=== PATIENT | female | born 1940 | race Caucasian/White ===

== ENCOUNTER 2017-02-03 14:19 | Inpatient (IN) | payer MEDICARE, MEDICAID ==
[2017-02-03] VITALS (17 sets, daily range): BP systolic 81–115; BP diastolic 37–87
[~2017-02-03] VITALS: Ht 162.6 cm; Wt 91.5 kg
[~2017-02-03 14:19] MED LIST: ADV50100 IH; AMLO1TAB46 PO; ASPI-1265 PO; FLUTICASONE; HCTZ25T PO; NITR0.4T51 SL; NORepinephrine bitartrate 8 MG in NS 250 ML BAG (32 mcg/ml) IV ONE; PRAV80TA3 PO; etomidate 2mg/ml inj. ONE
[2017-02-03] MEDS ORDERED: normal saline 1000ML IV soln IVB ONE (14:50)
[2017-02-03] MEDS ORDERED: furosemide 10 MG/1 ML 10ml inj IV ONE (15:25)
[2017-02-03] MEDS ORDERED: diltiazem 5mg/ml 5ml inj. IV ONE (15:30)
[2017-02-03 15:39] LABS: BASOPHILS # (AUTO) 0.1 X10'3 (0-0.2); BASOPHILS % (AUTO) 0.4 % (0-1); EOSINOPHILS % (AUTO) 0.1 % (0-6); HEMATOCRIT 38.1 % (35.0-45.0); HEMOGLOBIN 12.7 g/dl (12.0-16.0); LYMPHOCYTES # (AUTO) 0.4 X10'3 (1.1-4.8); LYMPHOCYTES % (AUTO) 2.6 % (21-51); MEAN CORPUSCULAR HEMOGLOBIN 28.6 PG (27.0-31.0); MEAN CORPUSCULAR HGB CONC 33.2 % (33.0-36.5); MEAN CORPUSCULAR VOLUME 86.1 FL (78-98); MEAN PLATELET VOLUME 8.6 FL (7.4-10.4); MONOCYTES # (AUTO) 0.4 X10'3 (0-0.9); NEUTROPHILS # (AUTO) 12.9 X10'3 (1.8-7.7); NEUTROPHILS % (AUTO) 93.9 % (42-75); PLATELET COUNT 213 X10'3 (140-440); RED BLOOD COUNT 4.42 X10'6 (4.20-5.60); RED CELL DISTRIBUTION WIDTH 15.1 % (11.5-14.5); WHITE BLOOD COUNT 13.7 X10'3 (4.5-11.0)
[2017-02-03 15:52] LABS: PARTIAL THROMBOPLASTIN TIME 32 SECONDS (22-32); PROTHROMBIN TIME 10.1 SECONDS (9.0-12.0)
[2017-02-03 15:58] LABS: ALANINE AMINOTRANSFERASE 19 U/L (12-78); ALBUMIN 1.8 G/DL (3.4-5.0); ALBUMIN/GLOBULIN RATIO 0.4 (1.1-1.5); ALKALINE PHOSPHATASE 57 IU/L (46-116); ANION GAP 12 (8-16); ASPARTATE AMINO TRANSFERASE 48 U/L (10-37); BILIRUBIN,TOTAL 1.3 MG/DL (0.1-1.0); BLOOD UREA NITROGEN 87 MG/DL (7-18); BUN/CREATININE RATIO 45.8 (6.6-38.0); CALCIUM 8.4 MG/DL (8.5-10.1); CHLORIDE 102 MMOL/L (99-107); GLUCOSE 134 MG/DL (70-104); POTASSIUM 3.2 MMOL/L (3.5-5.1); SODIUM 140 MMOL/L (135-145); TOTAL CARBON DIOXIDE 25.8 MMOL/L (24-32); TOTAL PROTEIN 6.6 G/DL (6.4-8.2); eGFR 26 ML/MIN
[2017-02-03 16:04] LABS: MAGNESIUM 2.5 MG/DL (1.5-2.4)
[2017-02-03 16:09] LABS: PLATELET ESTIMATE NORMAL; TOTAL CELLS COUNTED 100
[2017-02-03 16:10] LABS: TOXIC GRANULATION 2+
[2017-02-03 16:12] LABS: CLARITY,URINE Cloudy (Clear); COLOR,URINE Dark Yellow (Yellow); GLUCOSE, URINE Negative (Neg); KETONES,URINE Negative (Neg); LEUKOCYTE ESTERASE ,URINE Moderate (Neg); NITRITES, URINE Positive (Neg); OCCULT BLOOD,URINE Moderate (Neg); PROTEIN,URINE 100 mg/dl (Neg)
[2017-02-03 16:19] LABS: UA COLLECTION TYPE STRAIGHT CATH
[2017-02-03] MEDS ORDERED: ipratropium/albuterol 3ml nebule NEB ONE (16:20)
[2017-02-03] MEDS ORDERED: CefTRIAXone 1 gm/50ml D5W ADV 50 ML IV ONE (16:25)
[2017-02-03] MEDS ORDERED: levoFLOXACIN-Levaquin 500mg/D5 100 ML IV ONE (16:25)
[2017-02-03 16:30] LABS: MUCUS STRANDS MODERATE /LPF (Neg); SQUAMOUS EPITHELIAL CELL,UR MANY /LPF (FEW)
[2017-02-03 16:35] LABS: BACTERIA,URINE 4+ /HPF (Neg); WBC,URINE 20-30 /HPF (0-4)
[2017-02-03] MEDS: potassium Cl 20mEq in NS 1,000 ML IV SCH (16:42)
[2017-02-03] MEDS ORDERED: magnesium 4gm in 100ml NS 100 ML IV PRN (16:45)
[2017-02-03] MEDS ORDERED: acetaminophen 325mg tablet PO PRN (16:45)
[2017-02-03] MEDS ORDERED: potassium Cl 40MEQ/NS 500ml 500 ML IV PRN ×2 (16:45)
[2017-02-03] MEDS ORDERED: magnesium Cl slow-release 64mg tablet PO PRN (16:45)
[2017-02-03] MEDS ORDERED: magnesium 2GM in 50ml NS 50 ML IV PRN (16:45)
[2017-02-03] MEDS ORDERED: mag hydrox/Alum hydrox/simeth 30ml oral suspension PO PRN (16:45)
[2017-02-03] MEDS ORDERED: morphine sulfate 8 MG/ML SYRINGE IV PRN ×2 (16:45)
[2017-02-03] MEDS ORDERED: potassium Cl 20 mEq SR tablet PO PRN (16:45)
[2017-02-03 16:56] LABS: ABG BASE EXCESS -5.2 mmol/L (-2.0-3.0); ABG OXYGEN SATURATION 86.2 % (95-98); ABG PCO2 (T) 43.3 mmHg (32.0-45.0); ABG PH (T) 7.303 (7.350-7.450); ABG PO2 (T) 60.1 mmHg (83-108); ALLEN'S TEST Positive; FCOHb 0.9 % (0.5-1.5); FLOW 5 L/min; FMetHb 0.3 % (0.3-1.12); FO2Hb 85.2 % (94-100); TOTAL HEMOGLOBIN 12.6 G/dl (12.0-16.0)
[2017-02-03] MEDS ORDERED: oseltamivir phos 75mg capsule PO SCH (17:00)
[2017-02-03] MEDS ORDERED: levoFLOXACIN-Levaquin 750MG/D5 150 ML IV SCH (17:00)
[2017-02-03] MEDS ORDERED: nitroGLYCERIN 0.4mg SUBLingual tab SL PRN (17:00)
[2017-02-03] MEDS ORDERED: oseltamivir 30mg capsule PO SCH (17:17)
[2017-02-03] MEDS ORDERED: pneumococcal 23-VAL P-sac vacc 25 mcg/0.5ml vial IMVAC ONE (17:40)
[2017-02-03] MEDS: piperacillin/tazo 3.375gm/50ml 50 ML IV SCH (18:00)
[2017-02-03] MEDS: potassium Cl 20 mEq SR tablet PO SCH (18:18)
[2017-02-03] MEDS: diltiazem-D5W 125mg/125ml 125 ML IV PRN ×2 (18:54→22:07)
[2017-02-03] MEDS: ipratropium/albuterol 3ml nebule NEB SCH ×2 (19:12→23:02)
[2017-02-03] MEDS: heparin, porcine 5000 units/ml vial SQ SCH (20:00)
[2017-02-03] MEDS: nystatin 15 GM powder TP SCH (21:00)
[2017-02-03] MEDS ORDERED: normal saline 500ml IV soln 1,000 ML IV ONE (21:45)
[2017-02-03 22:05] LABS: BASOPHILS % (AUTO) 0 % (0-1); EOSINOPHILS % (AUTO) 0 % (0-6); HEMATOCRIT 41.8 % (35.0-45.0); HEMOGLOBIN 13.6 g/dl (12.0-16.0); LYMPHOCYTES # (AUTO) 0.4 X10'3 (1.1-4.8); LYMPHOCYTES % (AUTO) 3.8 % (21-51); MEAN CORPUSCULAR HGB CONC 32.6 % (33.0-36.5); MEAN PLATELET VOLUME 8.8 FL (7.4-10.4); MONOCYTES # (AUTO) 0.1 X10'3 (0-0.9); MONOCYTES % (AUTO) 0.8 % (2-12); NEUTROPHILS % (AUTO) 95.4 % (42-75); PLATELET COUNT 212 X10'3 (140-440); RED BLOOD COUNT 4.86 X10'6 (4.20-5.60); WHITE BLOOD COUNT 10.5 X10'3 (4.5-11.0)
[2017-02-03] MEDS: pantoprazole 40mg Tablet.DR PO SCH (23:05)
[2017-02-03] MEDS ORDERED: normal saline 1000ml 1,000 ML IV SCH (23:20)
[2017-02-04] VITALS (26 sets, daily range): BP systolic 83–147; BP diastolic 45–78
[2017-02-04] MEDS: piperacillin/tazo 3.375gm/50ml 50 ML IV SCH ×3 (00:01→07:50)
[2017-02-04] MEDS: potassium Cl 20mEq in NS 1,000 ML IV SCH (00:10)
[2017-02-04 00:11] LABS: ABG BASE EXCESS -1.7 mmol/L (-2.0-3.0); ABG HCO3 21.2 mmol/L (22.0-26.0); ABG OXYGEN SATURATION 89.7 % (95-98); ABG PCO2 (T) 32.2 mmHg (32.0-45.0); ABG PH (T) 7.441 (7.350-7.450); ABG PO2 (T) 62.4 mmHg (83-108); ALLEN'S TEST Positive; FCOHb 0.1 % (0.5-1.5); FMetHb 0.3 % (0.3-1.12); FO2Hb 89.3 % (94-100); PATIENT TEMPERATURE 38.2; RESPIRATORY RATE (OBSERVED) 26 b/min; TOTAL HEMOGLOBIN 12.1 G/dl (12.0-16.0)
[2017-02-04] MEDS ORDERED: albumin (Human) 5% 250 ML IV solution IV STA (01:48)
[2017-02-04] MEDS ORDERED: ondansetron/PF 4mg/2ml inj IV PRN (01:50)
[2017-02-04] MEDS ORDERED: magnesium 2GM in 50ml NS 50 ML IV PRN (01:50)
[2017-02-04] MEDS ORDERED: amiodarone 50MG/ML inj IV ONE ×2 (01:50)
[2017-02-04] MEDS ORDERED: potassium Cl 40MEQ/NS 500ml 500 ML IV PRN (01:50)
[2017-02-04] MEDS ORDERED: acetaminophen 325mg tablet PO PRN (01:50)
[2017-02-04] MEDS: amiodarone/D5 360MG/200ML BAG 200 ML IV SCH ×4 (02:52→20:22)
[2017-02-04] MEDS: ipratropium/albuterol 3ml nebule NEB SCH ×6 (04:27→23:53)
[2017-02-04 06:01] LABS: BASOPHILS % (AUTO) 0 % (0-1); EOSINOPHILS % (AUTO) 0 % (0-6); HEMATOCRIT 32.7 % (35.0-45.0); HEMOGLOBIN 10.9 g/dl (12.0-16.0); LYMPHOCYTES # (AUTO) 0.4 X10'3 (1.1-4.8); LYMPHOCYTES % (AUTO) 2.7 % (21-51); MEAN CORPUSCULAR HEMOGLOBIN 28.6 PG (27.0-31.0); MEAN CORPUSCULAR HGB CONC 33.5 % (33.0-36.5); MEAN CORPUSCULAR VOLUME 85.4 FL (78-98); MEAN PLATELET VOLUME 8.9 FL (7.4-10.4); MONOCYTES # (AUTO) 0.4 X10'3 (0-0.9); MONOCYTES % (AUTO) 2.7 % (2-12); NEUTROPHILS # (AUTO) 13.6 X10'3 (1.8-7.7); NEUTROPHILS % (AUTO) 94.6 % (42-75); PLATELET COUNT 187 X10'3 (140-440); RED BLOOD COUNT 3.83 X10'6 (4.20-5.60); WHITE BLOOD COUNT 14.3 X10'3 (4.5-11.0)
[2017-02-04 06:24] LABS: ALANINE AMINOTRANSFERASE 12 U/L (12-78); ALBUMIN 1.7 G/DL (3.4-5.0); ALBUMIN/GLOBULIN RATIO 0.4 (1.1-1.5); ALKALINE PHOSPHATASE 48 IU/L (46-116); ANION GAP 13 (8-16); ASPARTATE AMINO TRANSFERASE 29 U/L (10-37); BILIRUBIN,TOTAL 1.3 MG/DL (0.1-1.0); BLOOD UREA NITROGEN 71 MG/DL (7-18); BUN/CREATININE RATIO 42.8 (6.6-38.0); CALCIUM 7.8 MG/DL (8.5-10.1); CHLORIDE 105 MMOL/L (99-107); CREATININE 1.66 MG/DL (0.40-0.90); GLUCOSE 139 MG/DL (70-104); MAGNESIUM 2.1 MG/DL (1.5-2.4); SODIUM 142 MMOL/L (135-145); TOTAL CARBON DIOXIDE 23.6 MMOL/L (24-32); TOTAL PROTEIN 5.7 G/DL (6.4-8.2); eGFR 30 ML/MIN
[2017-02-04 06:43] LABS: POTASSIUM 2.6 MMOL/L (3.5-5.1)
[2017-02-04 06:56] LABS: BANDS% (MANUAL) 9 % (0-10); LYMPHOCYTES % (MANUAL) 3 % (21-51); METAMYLEOCYTES% (MANUAL) 1 % (0-0); MONOCYTES % (MANUAL) 3 % (2-12); MYELOCYTES % (MANUAL) 1 % (0-0); NEUTROPHILS % (MANUAL) 83 % (42-75); TOTAL CELLS COUNTED 100
[2017-02-04 06:57] LABS: PLATELET ESTIMATE NORMAL; TOXIC GRANULATION 1+
[2017-02-04 07:16] LABS: CHOLESTEROL < 50 MG/DL (0-200); HDL CHOLESTEROL 11 MG/DL (35-60); LDL CHOLESTEROL 26 MG/DL (50-100); TRIGLYCERIDES 73 MG/DL (20-135)
[2017-02-04] MEDS: lactobacillus rhamnosus 10,000 MMU CELLS/CAPSULE PO SCH ×2 (07:43→17:04)
[2017-02-04] MEDS: pantoprazole 40mg Tablet.DR PO SCH (07:43)
[2017-02-04] MEDS: aspirin 81mg tab.chew PO SCH (07:44)
[2017-02-04] MEDS: nystatin 15 GM powder TP SCH ×3 (07:48→20:17)
[2017-02-04] MEDS: potassium Cl 20 mEq SR tablet PO SCH ×2 (07:48→17:04)
[2017-02-04] MEDS: heparin, porcine 5000 units/ml vial SQ SCH ×2 (07:48→20:15)
[2017-02-04] MEDS: potassium Cl 20 mEq SR tablet PO PRN ×3 (07:49→15:55)
[2017-02-04] MEDS ORDERED: CefTRIAXone 1 gm/50ml D5W ADV 50 ML IV SCH (08:00)
[2017-02-04] MEDS: K and/or MAG REPLACEMENT MC SCH (08:00)
[2017-02-04] MEDS ORDERED: pravastatin 40mg tablet PO SCH (08:00)
[2017-02-04] MEDS ORDERED: furosemide 20 MG/2 ML vial IV SCH (08:00)
[2017-02-04] MEDS: levoFLOXACIN-Levaquin 750MG/D5 150 ML IV SCH (12:34)
[2017-02-04] MEDS: vancomycin/NS 1 GM ADD-VANTAGE 250 ML IV SCH ×2 (13:50→15:30)
[2017-02-04] MEDS: pravastatin 40mg tablet PO SCH (20:16)
[2017-02-04] MEDS: potassium Cl 40MEQ/250ML bag 250 ML IV PRN ×2 (20:17→22:42)
[2017-02-05] VITALS (24 sets, daily range): BP systolic 110–174; BP diastolic 50–80
[2017-02-05] MEDS: amiodarone/D5 360MG/200ML BAG 200 ML IV SCH ×4 (02:26→19:41)
[2017-02-05] MEDS: ipratropium/albuterol 3ml nebule NEB SCH ×6 (03:55→23:04)
[2017-02-05 04:21] LABS: BASOPHILS % (AUTO) 0 % (0-1); EOSINOPHILS # (AUTO) 0.2 X10'3 (0-0.9); EOSINOPHILS % (AUTO) 0.8 % (0-6); HEMATOCRIT 33.7 % (35.0-45.0); HEMOGLOBIN 11.1 g/dl (12.0-16.0); LYMPHOCYTES # (AUTO) 0.4 X10'3 (1.1-4.8); LYMPHOCYTES % (AUTO) 2.2 % (21-51); MEAN CORPUSCULAR HEMOGLOBIN 28.4 PG (27.0-31.0); MEAN CORPUSCULAR HGB CONC 33.1 % (33.0-36.5); MEAN CORPUSCULAR VOLUME 85.8 FL (78-98); MEAN PLATELET VOLUME 8.8 FL (7.4-10.4); MONOCYTES # (AUTO) 0.1 X10'3 (0-0.9); MONOCYTES % (AUTO) 0.5 % (2-12); NEUTROPHILS # (AUTO) 19.3 X10'3 (1.8-7.7); NEUTROPHILS % (AUTO) 96.5 % (42-75); PLATELET COUNT 203 X10'3 (140-440); RED BLOOD COUNT 3.92 X10'6 (4.20-5.60); RED CELL DISTRIBUTION WIDTH 15.4 % (11.5-14.5)
[2017-02-05 04:35] LABS: ALANINE AMINOTRANSFERASE 15 U/L (12-78); ALBUMIN 1.4 G/DL (3.4-5.0); ALBUMIN/GLOBULIN RATIO 0.3 (1.1-1.5); ALKALINE PHOSPHATASE 50 IU/L (46-116); ANION GAP 6 (8-16); ASPARTATE AMINO TRANSFERASE 33 U/L (10-37); BILIRUBIN,TOTAL 0.8 MG/DL (0.1-1.0); BLOOD UREA NITROGEN 49 MG/DL (7-18); BUN/CREATININE RATIO 39.2 (6.6-38.0); CALCIUM 7.9 MG/DL (8.5-10.1); CHLORIDE 112 MMOL/L (99-107); CREATININE 1.25 MG/DL (0.40-0.90); GLUCOSE 125 MG/DL (70-104); MAGNESIUM 2.3 MG/DL (1.5-2.4); POTASSIUM 4.3 MMOL/L (3.5-5.1); SODIUM 143 MMOL/L (135-145); TOTAL CARBON DIOXIDE 24.8 MMOL/L (24-32); TOTAL PROTEIN 5.5 G/DL (6.4-8.2); eGFR 41 ML/MIN
[2017-02-05 04:49] LABS: TOTAL CELLS COUNTED 100
[2017-02-05 04:50] LABS: PLATELET ESTIMATE NORMAL; TOXIC GRANULATION 1+
[2017-02-05] MEDS ORDERED: amiodarone 150mg/dext, iso-os 100 ML IV ONE ×2 (05:40→05:46)
[2017-02-05] MEDS: K and/or MAG REPLACEMENT MC SCH (08:00)
[2017-02-05] MEDS: lactobacillus rhamnosus 10,000 MMU CELLS/CAPSULE PO SCH ×2 (09:11→16:30)
[2017-02-05] MEDS: aspirin 81mg tab.chew PO SCH (09:11)
[2017-02-05] MEDS: potassium Cl 20 mEq SR tablet PO SCH ×2 (09:11→16:30)
[2017-02-05] MEDS: heparin, porcine 5000 units/ml vial SQ SCH (09:11)
[2017-02-05] MEDS: nystatin 15 GM powder TP SCH ×3 (09:12→22:03)
[2017-02-05] MEDS: pantoprazole 40mg Tablet.DR PO SCH (09:12)
[2017-02-05] MEDS ORDERED: furosemide 20 MG/2 ML vial IV ONE (11:55)
[2017-02-05] MEDS: labetalol 100mg tablet PO SCH (12:27)
[2017-02-05] MEDS ORDERED: furosemide 40mg/4ml inj IV SCH (13:00)
[2017-02-05] MEDS: furosemide 40mg tablet PO SCH ×2 (13:05→22:00)
[2017-02-05] MEDS: vancomycin inj 1,250 MG in normal saline 250ml IV soln 250 ML IV SCH (13:47)
[2017-02-05] MEDS ORDERED: Neutra Phos packet PO PRN (17:20)
[2017-02-05] MEDS ORDERED: sodium phosphate inj. 15 MMOL in dextrose 5%-water 150 ML IV PRN (17:20)
[2017-02-05] MEDS ORDERED: sodium phosphate inj. 30 MMOL in dextrose 5%-water 250 ML IV PRN (17:20)
[2017-02-05 20:06] LABS: ABG BASE EXCESS -0.9 mmol/L (-2.0-3.0); ABG HCO3 22.6 mmol/L (22.0-26.0); ABG OXYGEN SATURATION 85.9 % (95-98); ABG PH (T) 7.451 (7.350-7.450); ABG PO2 (T) 54.9 mmHg (83-108); FCOHb 0.4 % (0.5-1.5); FLOW 15 L/min; FMetHb 0.3 % (0.3-1.12); FO2Hb 85.3 % (94-100); PATIENT TEMPERATURE 36.6; TOTAL HEMOGLOBIN 12.2 G/dl (12.0-16.0)
[2017-02-05] MEDS: enoxaparin 30mg/0.3ml syringe SUBCUT SCH (21:59)
[2017-02-05] MEDS: enoxaparin 60mg/0.6ml syringe SUBCUT SCH (22:00)
[2017-02-05] MEDS: pravastatin 40mg tablet PO SCH (22:04)
[2017-02-06] VITALS (24 sets, daily range): BP systolic 102–171; BP diastolic 36–71
[2017-02-06] MEDS: ipratropium/albuterol 3ml nebule NEB SCH ×6 (02:39→23:37)
[2017-02-06 02:52] LABS: BASOPHILS # (AUTO) 0.2 X10'3 (0-0.2); BASOPHILS % (AUTO) 0.9 % (0-1); EOSINOPHILS % (AUTO) 0.2 % (0-6); HEMATOCRIT 35.1 % (35.0-45.0); HEMOGLOBIN 11.8 g/dl (12.0-16.0); LYMPHOCYTES # (AUTO) 0.6 X10'3 (1.1-4.8); LYMPHOCYTES % (AUTO) 2.7 % (21-51); MEAN CORPUSCULAR HEMOGLOBIN 28.3 PG (27.0-31.0); MEAN CORPUSCULAR HGB CONC 33.5 % (33.0-36.5); MEAN CORPUSCULAR VOLUME 84.5 FL (78-98); MEAN PLATELET VOLUME 8.5 FL (7.4-10.4); MONOCYTES # (AUTO) 0.5 X10'3 (0-0.9); MONOCYTES % (AUTO) 2.1 % (2-12); NEUTROPHILS # (AUTO) 22.7 X10'3 (1.8-7.7); NEUTROPHILS % (AUTO) 94.1 % (42-75); PLATELET COUNT 232 X10'3 (140-440); RED BLOOD COUNT 4.16 X10'6 (4.20-5.60); RED CELL DISTRIBUTION WIDTH 14.5 % (11.5-14.5)
[2017-02-06 03:14] LABS: ALANINE AMINOTRANSFERASE 15 U/L (12-78); ALBUMIN 1.4 G/DL (3.4-5.0); ALBUMIN/GLOBULIN RATIO 0.3 (1.1-1.5); ALKALINE PHOSPHATASE 60 IU/L (46-116); ANION GAP 9 (8-16); ASPARTATE AMINO TRANSFERASE 29 U/L (10-37); BILIRUBIN,TOTAL 0.8 MG/DL (0.1-1.0); BLOOD UREA NITROGEN 39 MG/DL (7-18); BUN/CREATININE RATIO 33.6 (6.6-38.0); CALCIUM 8.1 MG/DL (8.5-10.1); CHLORIDE 109 MMOL/L (99-107); CREATININE 1.16 MG/DL (0.40-0.90); GLUCOSE 137 MG/DL (70-104); PHOSPHORUS 3.3 MG/DL (2.3-4.5); POTASSIUM 3.4 MMOL/L (3.5-5.1); SODIUM 145 MMOL/L (135-145); TOTAL CARBON DIOXIDE 27.2 MMOL/L (24-32); TOTAL PROTEIN 5.6 G/DL (6.4-8.2); eGFR 45 ML/MIN
[2017-02-06 03:21] LABS: TOTAL CELLS COUNTED 100
[2017-02-06 03:22] LABS: ANISOCYTOSIS 1+; PLATELET ESTIMATE NORMAL; POLYCHROMASIA 1+; TOXIC GRANULATION 1+; TOXIC VACUOLATION 1+
[2017-02-06] MEDS: K and/or MAG REPLACEMENT MC SCH (08:00)
[2017-02-06] MEDS: labetalol 100mg tablet PO SCH ×4 (08:00→21:00)
[2017-02-06] MEDS: enoxaparin 30mg/0.3ml syringe SUBCUT SCH ×2 (08:22→20:00)
[2017-02-06] MEDS: enoxaparin 60mg/0.6ml syringe SUBCUT SCH ×2 (08:22→20:00)
[2017-02-06] MEDS: pantoprazole 40mg Tablet.DR PO SCH (08:23)
[2017-02-06] MEDS: amiodarone 200mg tablet PO SCH ×3 (08:23→21:00)
[2017-02-06] MEDS: potassium Cl 20 mEq SR tablet PO SCH ×2 (08:23→13:11)
[2017-02-06] MEDS: aspirin 81mg tab.chew PO SCH (08:23)
[2017-02-06] MEDS: furosemide 40mg tablet PO SCH ×3 (08:23→21:00)
[2017-02-06] MEDS: lactobacillus rhamnosus 10,000 MMU CELLS/CAPSULE PO SCH ×2 (08:23→16:00)
[2017-02-06] MEDS: nystatin 15 GM powder TP SCH ×3 (08:24→21:00)
[2017-02-06] MEDS: levoFLOXACIN-Levaquin 750MG/D5 150 ML IV SCH (08:24)
[2017-02-06] MEDS: NUT.TX.GLUC.INTOLER,LAC-FR,REG (BOOST GLUCOSE CONTROL) 237 ML PO SCH ×2 (13:00→18:00)
[2017-02-06] MEDS ORDERED: furosemide 40 MG/4 ML oral solution UD cup PO SCH (13:00)
[2017-02-06] MEDS ORDERED: furosemide 10 MG/1 ML 10ml inj IV ONE (13:00)
[2017-02-06] MEDS: Protein Smoothie (high protein) 240ml (8oz) cup PO SCH ×2 (13:00→18:00)
[2017-02-06] MEDS: spironolactone 50 MG tablet PO SCH ×2 (13:00→21:00)
[2017-02-06] MEDS: vancomycin inj 1,250 MG in normal saline 250ml IV soln 250 ML IV SCH (13:12)
[2017-02-06] MEDS: pravastatin 40mg tablet PO SCH (21:00)
[2017-02-06] MEDS: acetaminophen 325mg tablet PO PRN (22:26)
[2017-02-06] MEDS ORDERED: potassium Cl 40MEQ/250ML bag 250 ML IV PRN (22:45)
[2017-02-06] MEDS ORDERED: potassium Cl 20 mEq SR tablet PO PRN ×2 (22:45)
[2017-02-06] MEDS ORDERED: potassium Cl 40MEQ/250ML bag 500 ML IV ONE (23:35)
[2017-02-07] VITALS (24 sets, daily range): BP systolic 106–140; BP diastolic 40–74
[2017-02-07] MEDS: potassium Cl 40MEQ/250ML bag 250 ML IV PRN ×2 (02:18→21:24)
[2017-02-07] MEDS: ipratropium/albuterol 3ml nebule NEB SCH ×6 (02:56→22:49)
[2017-02-07 04:49] LABS: BASOPHILS % (AUTO) 0.1 % (0-1); EOSINOPHILS # (AUTO) 0.1 X10'3 (0-0.9); EOSINOPHILS % (AUTO) 0.2 % (0-6); HEMATOCRIT 35.1 % (35.0-45.0); HEMOGLOBIN 11.6 g/dl (12.0-16.0); LYMPHOCYTES # (AUTO) 0.7 X10'3 (1.1-4.8); LYMPHOCYTES % (AUTO) 3.2 % (21-51); MEAN CORPUSCULAR HEMOGLOBIN 28.3 PG (27.0-31.0); MEAN CORPUSCULAR HGB CONC 33.2 % (33.0-36.5); MEAN CORPUSCULAR VOLUME 85.4 FL (78-98); MEAN PLATELET VOLUME 8.7 FL (7.4-10.4); MONOCYTES # (AUTO) 0.8 X10'3 (0-0.9); MONOCYTES % (AUTO) 3.6 % (2-12); NEUTROPHILS # (AUTO) 21.6 X10'3 (1.8-7.7); NEUTROPHILS % (AUTO) 92.9 % (42-75); PLATELET COUNT 238 X10'3 (140-440); RED BLOOD COUNT 4.11 X10'6 (4.20-5.60); RED CELL DISTRIBUTION WIDTH 15.6 % (11.5-14.5); WHITE BLOOD COUNT 23.2 X10'3 (4.5-11.0)
[2017-02-07 05:35] LABS: ALANINE AMINOTRANSFERASE 14 U/L (12-78); ALBUMIN 1.3 G/DL (3.4-5.0); ALBUMIN/GLOBULIN RATIO 0.3 (1.1-1.5); ALKALINE PHOSPHATASE 59 IU/L (46-116); ANION GAP 7 (8-16); ASPARTATE AMINO TRANSFERASE 24 U/L (10-37); BLOOD UREA NITROGEN 33 MG/DL (7-18); BUN/CREATININE RATIO 25.8 (6.6-38.0); CHLORIDE 108 MMOL/L (99-107); CREATININE 1.28 MG/DL (0.40-0.90); GLUCOSE 115 MG/DL (70-104); MAGNESIUM 1.6 MG/DL (1.5-2.4); POTASSIUM 3.4 MMOL/L (3.5-5.1); SODIUM 146 MMOL/L (135-145); TOTAL PROTEIN 5.4 G/DL (6.4-8.2); eGFR 40 ML/MIN
[2017-02-07 05:39] LABS: ANISOCYTOSIS 1+; PLATELET ESTIMATE NORMAL; TOTAL CELLS COUNTED 100; TOXIC GRANULATION 1+
[2017-02-07] MEDS: Protein Smoothie (high protein) 240ml (8oz) cup PO SCH ×3 (08:00→19:46)
[2017-02-07] MEDS: K and/or MAG REPLACEMENT MC SCH (08:00)
[2017-02-07] MEDS: NUT.TX.GLUC.INTOLER,LAC-FR,REG (BOOST GLUCOSE CONTROL) 237 ML PO SCH ×3 (08:00→18:00)
[2017-02-07] MEDS: lactobacillus rhamnosus 10,000 MMU CELLS/CAPSULE PO SCH ×2 (08:15→17:30)
[2017-02-07] MEDS: labetalol 100mg tablet PO SCH ×3 (08:15→21:00)
[2017-02-07] MEDS: aspirin 81mg tab.chew PO SCH (08:15)
[2017-02-07] MEDS: pantoprazole 40mg Tablet.DR PO SCH (08:15)
[2017-02-07] MEDS: furosemide 40mg tablet PO SCH ×3 (08:15→21:15)
[2017-02-07] MEDS: spironolactone 50 MG tablet PO SCH ×3 (08:15→21:15)
[2017-02-07] MEDS: amiodarone 200mg tablet PO SCH ×3 (08:15→21:15)
[2017-02-07] MEDS: enoxaparin 60mg/0.6ml syringe SUBCUT SCH ×2 (08:16→21:22)
[2017-02-07] MEDS: enoxaparin 30mg/0.3ml syringe SUBCUT SCH ×2 (08:16→21:22)
[2017-02-07] MEDS: nystatin 15 GM powder TP SCH ×3 (08:17→21:00)
[2017-02-07] MEDS: levoFLOXACIN-Levaquin 750MG/D5 150 ML IV SCH (08:17)
[2017-02-07] MEDS: potassium Cl 20 mEq SR tablet PO SCH ×2 (08:17→17:30)
[2017-02-07] MEDS ORDERED: pneumococcal 23-VAL P-sac vacc 25 mcg/0.5ml vial IMVAC ONE (09:00)
[2017-02-07] MEDS ORDERED: FENTANYL-0.9 % NACL/PF 100 ML IV PRN (11:39)
[2017-02-07] MEDS ORDERED: midazolam 100mg in NS 100ml 100 ML IV PRN (11:39)
[2017-02-07] MEDS ORDERED: fentaNYL in normal saline/PF 1,000mcg/100ml bag IV PRN (11:40)
[2017-02-07] MEDS ORDERED: MIDAZOLAM IV PRN (11:40)
[2017-02-07] MEDS ORDERED: midazolam 2 mg/2 ml injection IV PRN (11:40)
[2017-02-07] MEDS ORDERED: midazolam 2 mg/2 ml injection IV ONE (11:40)
[2017-02-07] MEDS ORDERED: NS IV PRN (11:40)
[2017-02-07] MEDS ORDERED: fentaNYL/PF 50MCG/1 ML 2ML syringe IV PRN ×3 (11:40)
[2017-02-07] MEDS ORDERED: MIDAZolam 5mg/ml 2ml vial ONE (11:45)
[2017-02-07] MEDS ORDERED: fentaNYL/PF 50MCG/1 ML 2ML syringe ONE (11:46)
[2017-02-07] MEDS: vancomycin inj 1,250 MG in normal saline 250ml IV soln 250 ML IV SCH (13:00)
[2017-02-07] MEDS: midazolam 100mg in NS 100ml 100 ML IV PRN (13:54)
[2017-02-07] MEDS: FENTANYL-0.9 % NACL/PF 100 ML IV PRN (13:55)
[2017-02-07] MEDS ORDERED: ipratropium/albuterol 3ml nebule NEB SCH (15:00)
[2017-02-07 17:16] LABS: ABG BASE EXCESS 4.7 mmol/L (-2.0-3.0); ABG HCO3 28.6 mmol/L (22.0-26.0); ABG OXYGEN SATURATION 90.5 % (95-98); ABG PCO2 (T) 39.6 mmHg (32.0-45.0); ABG PH (T) 7.476 (7.350-7.450); ABG PO2 (T) 57.6 mmHg (83-108); FCOHb 0.4 % (0.5-1.5); FMetHb 0.3 % (0.3-1.12); FO2Hb 89.9 % (94-100); MINUTE VOLUME 11 L/min; PEEP 8 cm H2O; RESPIRATORY RATE 12 b/min; TIDAL VOLUME 450 mL; TOTAL HEMOGLOBIN 11.8 G/dl (12.0-16.0)
[2017-02-07] MEDS: pravastatin 40mg tablet PO SCH (21:14)
[2017-02-07] MEDS: NORepinephrine 8mg/ 250ml NS 250 ML IV SCH (23:12)
[2017-02-08] VITALS (22 sets, daily range): BP systolic 92–129; BP diastolic 40–68
[2017-02-08] MEDS: potassium Cl 40MEQ/250ML bag 250 ML IV PRN ×2 (00:10→13:08)
[2017-02-08 02:36] LABS: ABG BASE EXCESS 5.7 mmol/L (-2.0-3.0); ABG HCO3 29.3 mmol/L (22.0-26.0); ABG PCO2 (T) 40.6 mmHg (32.0-45.0); ABG PO2 (T) 80.8 mmHg (83-108); FCOHb 0.1 % (0.5-1.5); FMetHb 0.3 % (0.3-1.12); FO2Hb 94.6 % (94-100); PEEP 8 cm H2O; RESPIRATORY RATE 12 b/min; RESPIRATORY RATE (OBSERVED) 19 b/min; TIDAL VOLUME 450 mL; TOTAL HEMOGLOBIN 11.6 G/dl (12.0-16.0)
[2017-02-08] MEDS: midazolam 100mg in NS 100ml 100 ML IV PRN ×2 (02:42→17:01)
[2017-02-08] MEDS: ipratropium/albuterol 3ml nebule NEB SCH ×6 (03:02→23:06)
[2017-02-08 03:10] LABS: BASOPHILS % (AUTO) 0 % (0-1); EOSINOPHILS # (AUTO) 0.6 X10'3 (0-0.9); EOSINOPHILS % (AUTO) 2.4 % (0-6); HEMATOCRIT 34.1 % (35.0-45.0); HEMOGLOBIN 11.2 g/dl (12.0-16.0); LYMPHOCYTES # (AUTO) 0.9 X10'3 (1.1-4.8); LYMPHOCYTES % (AUTO) 3.7 % (21-51); MEAN CORPUSCULAR HEMOGLOBIN 28.4 PG (27.0-31.0); MEAN CORPUSCULAR VOLUME 85.9 FL (78-98); MEAN PLATELET VOLUME 8.3 FL (7.4-10.4); MONOCYTES % (AUTO) 3.8 % (2-12); NEUTROPHILS # (AUTO) 22.9 X10'3 (1.8-7.7); NEUTROPHILS % (AUTO) 90.1 % (42-75); PLATELET COUNT 249 X10'3 (140-440); RED BLOOD COUNT 3.96 X10'6 (4.20-5.60); RED CELL DISTRIBUTION WIDTH 15.7 % (11.5-14.5)
[2017-02-08 03:14] LABS: WHITE BLOOD COUNT 25.4 X10'3 (4.5-11.0)
[2017-02-08 03:37] LABS: ALANINE AMINOTRANSFERASE 14 U/L (12-78); ALBUMIN 1.2 G/DL (3.4-5.0); ALBUMIN/GLOBULIN RATIO 0.3 (1.1-1.5); ALKALINE PHOSPHATASE 56 IU/L (46-116); ANION GAP 7 (8-16); ASPARTATE AMINO TRANSFERASE 20 U/L (10-37); BILIRUBIN,TOTAL 0.8 MG/DL (0.1-1.0); BLOOD UREA NITROGEN 30 MG/DL (7-18); BUN/CREATININE RATIO 21.6 (6.6-38.0); CALCIUM 7.8 MG/DL (8.5-10.1); CHLORIDE 110 MMOL/L (99-107); CREATININE 1.39 MG/DL (0.40-0.90); GLUCOSE 133 MG/DL (70-104); MAGNESIUM 1.4 MG/DL (1.5-2.4); PHOSPHORUS 2.4 MG/DL (2.3-4.5); POTASSIUM 4.1 MMOL/L (3.5-5.1); SODIUM 149 MMOL/L (135-145); TOTAL CARBON DIOXIDE 31.7 MMOL/L (24-32); TOTAL PROTEIN 5.4 G/DL (6.4-8.2); eGFR 37 ML/MIN
[2017-02-08 05:02] LABS: ANISOCYTOSIS 1+; PLATELET ESTIMATE NORMAL; TOTAL CELLS COUNTED 100; TOXIC GRANULATION 1+
[2017-02-08] MEDS: NUT.TX.GLUC.INTOLER,LAC-FR,REG (BOOST GLUCOSE CONTROL) 237 ML PO SCH ×3 (07:35→15:11)
[2017-02-08] MEDS: K and/or MAG REPLACEMENT MC SCH (07:35)
[2017-02-08] MEDS: labetalol 100mg tablet PO SCH ×3 (07:36→19:43)
[2017-02-08] MEDS: Protein Smoothie (high protein) 240ml (8oz) cup PO SCH ×3 (07:36→15:12)
[2017-02-08] MEDS: potassium Cl 20 mEq SR tablet PO SCH ×2 (07:36→15:11)
[2017-02-08] MEDS: lactobacillus rhamnosus 10,000 MMU CELLS/CAPSULE PO SCH ×2 (08:19→16:12)
[2017-02-08] MEDS: enoxaparin 60mg/0.6ml syringe SUBCUT SCH ×2 (08:20→19:50)
[2017-02-08] MEDS: enoxaparin 30mg/0.3ml syringe SUBCUT SCH ×2 (08:20→19:50)
[2017-02-08] MEDS: amiodarone 200mg tablet PO SCH ×3 (08:20→21:15)
[2017-02-08] MEDS: furosemide 40mg tablet PO SCH (08:20)
[2017-02-08] MEDS: pantoprazole 40 MG vial IV SCH (08:21)
[2017-02-08] MEDS: aspirin 81mg tab.chew PO SCH (08:21)
[2017-02-08] MEDS: nystatin 15 GM powder TP SCH ×3 (08:21→21:15)
[2017-02-08] MEDS: levoFLOXACIN-Levaquin 750MG/D5 150 ML IV SCH (08:21)
[2017-02-08] MEDS ORDERED: albumin (Human) 5% 250 ML IV solution IV STA (09:57)
[2017-02-08] MEDS ORDERED: magnesium 2GM in 50ml NS 50 ML IV PRN (10:00)
[2017-02-08] MEDS ORDERED: magnesium 4gm in 100ml NS 100 ML IV PRN (10:00)
[2017-02-08] MEDS ORDERED: albumin (human) 25% 100 ML IV solution IV ONE (10:00)
[2017-02-08] MEDS ORDERED: potassium Cl 40MEQ/250ML bag 250 ML IV PRN ×2 (10:00)
[2017-02-08] MEDS ORDERED: methylPREDNISolone sod succ 125mg/2ml vial IV SCH (10:00)
[2017-02-08] MEDS: hydrocortisone sod succ/PF 100mg/2ml inj. IV SCH ×3 (10:55→19:51)
[2017-02-08] MEDS: polyethylene glycol 3350 17gm powd pack PO SCH ×2 (10:56→21:15)
[2017-02-08 11:35] LABS: OXYGEN SATURATION (MIXED VEN) 81.2 % (60-80); PO2 MIXED VENOUS (TEMP COR) 48.9 mmHg (35-46)
[2017-02-08 12:03] LABS: VANCOMYCIN,TROUGH 17.7 UG/ML (6.0-14.0)
[2017-02-08 12:05] LABS: CREATININE,URINE RANDOM 9.9 MG/DL; TOTAL PROTEIN,URINE RANDOM 13.1 MG/DL
[2017-02-08 12:07] LABS: POTASSIUM 2.8 MMOL/L (3.5-5.1)
[2017-02-08] MEDS ORDERED: VANCOMYCIN LEVEL IV NR (12:30)
[2017-02-08] MEDS: vancomycin inj 1,250 MG in normal saline 250ml IV soln 250 ML IV SCH (13:07)
[2017-02-08] MEDS: nystatin 500,000 unit/5ML UD oral suspension PO SCH ×2 (13:07→21:15)
[2017-02-08] MEDS: mineral oil/petrolatum ophthal oint EACHEYE SCH ×2 (13:07→19:51)
[2017-02-08 13:31] LABS: ABG HCO3 29.1 mmol/L (22.0-26.0); ABG PCO2 (T) 46.3 mmHg (32.0-45.0); ABG PH (T) 7.416 (7.350-7.450); ABG PO2 (T) 81.7 mmHg (83-108); FCOHb 0.3 % (0.5-1.5); FMetHb 0.3 % (0.3-1.12); FO2Hb 94.4 % (94-100); MINUTE VOLUME 9 L/min; PATIENT TEMPERATURE 36.8; PEEP 12 cm H2O; RESPIRATORY RATE 24 b/min; TIDAL VOLUME 325 mL; TOTAL HEMOGLOBIN 9.3 G/dl (12.0-16.0)
[2017-02-08] MEDS ORDERED: mineral oil/petrolatum ophthal oint EACHEYE SCH (14:00)
[2017-02-08] MEDS: albumin (human) 25% 100 ML IV solution IV SCH ×2 (16:12→23:39)
[2017-02-08 18:00] LABS: ALBUMIN 2.8 G/DL (3.4-5.0); ANION GAP 9 (8-16); BLOOD UREA NITROGEN 33 MG/DL (7-18); CHLORIDE 111 MMOL/L (99-107); CREATININE 1.27 MG/DL (0.40-0.90); GLUCOSE 158 MG/DL (70-104); POTASSIUM 4.1 MMOL/L (3.5-5.1); SODIUM 149 MMOL/L (135-145); eGFR 41 ML/MIN
[2017-02-08] MEDS: NORepinephrine 8mg/ 250ml NS 250 ML IV SCH (19:49)
[2017-02-08] MEDS: pravastatin 40mg tablet PO SCH (21:15)
[2017-02-09] VITALS (24 sets, daily range): BP systolic 116–150; BP diastolic 42–59
[2017-02-09] MEDS: mineral oil/petrolatum ophthal oint EACHEYE SCH ×4 (02:17→21:12)
[2017-02-09] MEDS: hydrocortisone sod succ/PF 100mg/2ml inj. IV SCH ×4 (02:17→21:12)
[2017-02-09] MEDS: ipratropium/albuterol 3ml nebule NEB SCH ×6 (02:41→23:11)
[2017-02-09 02:42] LABS: BASOPHILS % (AUTO) 0 % (0-1); EOSINOPHILS # (AUTO) 0.2 X10'3 (0-0.9); EOSINOPHILS % (AUTO) 1.5 % (0-6); HEMOGLOBIN 8.4 g/dl (12.0-16.0); LYMPHOCYTES # (AUTO) 0.5 X10'3 (1.1-4.8); LYMPHOCYTES % (AUTO) 3.6 % (21-51); MEAN CORPUSCULAR HGB CONC 32.5 % (33.0-36.5); MEAN CORPUSCULAR VOLUME 86.3 FL (78-98); MEAN PLATELET VOLUME 8.2 FL (7.4-10.4); MONOCYTES # (AUTO) 0.3 X10'3 (0-0.9); MONOCYTES % (AUTO) 2.4 % (2-12); NEUTROPHILS # (AUTO) 13.1 X10'3 (1.8-7.7); NEUTROPHILS % (AUTO) 92.5 % (42-75); PLATELET COUNT 174 X10'3 (140-440); RED BLOOD COUNT 3.01 X10'6 (4.20-5.60); RED CELL DISTRIBUTION WIDTH 15.8 % (11.5-14.5); WHITE BLOOD COUNT 14.1 X10'3 (4.5-11.0)
[2017-02-09 02:54] LABS: ALANINE AMINOTRANSFERASE 12 U/L (12-78); ALBUMIN 2.9 G/DL (3.4-5.0); ALKALINE PHOSPHATASE 34 IU/L (46-116); ANION GAP 8 (8-16); ASPARTATE AMINO TRANSFERASE 12 U/L (10-37); BILIRUBIN,TOTAL 0.6 MG/DL (0.1-1.0); BLOOD UREA NITROGEN 34 MG/DL (7-18); BUN/CREATININE RATIO 26.8 (6.6-38.0); CALCIUM 8.2 MG/DL (8.5-10.1); CHLORIDE 112 MMOL/L (99-107); CREATININE 1.27 MG/DL (0.40-0.90); GLUCOSE 136 MG/DL (70-104); POTASSIUM 3.2 MMOL/L (3.5-5.1); SODIUM 151 MMOL/L (135-145); TOTAL CARBON DIOXIDE 31.4 MMOL/L (24-32); TOTAL PROTEIN 5.9 G/DL (6.4-8.2); eGFR 41 ML/MIN
[2017-02-09 02:55] LABS: ABG BASE EXCESS 4.6 mmol/L (-2.0-3.0); ABG HCO3 29.7 mmol/L (22.0-26.0); ABG OXYGEN SATURATION 95.7 % (95-98); ABG PCO2 (T) 45.6 mmHg (32.0-45.0); ABG PH (T) 7.429 (7.350-7.450); ABG PO2 (T) 82.7 mmHg (83-108); FCOHb 0.3 % (0.5-1.5); FMetHb 0.3 % (0.3-1.12); FO2Hb 95.1 % (94-100); MINUTE VOLUME 10 L/min; PATIENT TEMPERATURE 36.4; PEEP 10 cm H2O; RESPIRATORY RATE 24 b/min; RESPIRATORY RATE (OBSERVED) 24 b/min; TIDAL VOLUME 325 mL; TOTAL HEMOGLOBIN 8.9 G/dl (12.0-16.0)
[2017-02-09] MEDS: FENTANYL-0.9 % NACL/PF 100 ML IV PRN (03:58)
[2017-02-09 04:45] LABS: ANISOCYTOSIS 1+; PLATELET ESTIMATE NORMAL; TOTAL CELLS COUNTED 100
[2017-02-09 04:46] LABS: TOXIC GRANULATION 1+
[2017-02-09 05:51] LABS: PHOSPHORUS 3.6 MG/DL (2.3-4.5); PREALBUMIN 10.5 MG/DL (19-36)
[2017-02-09] MEDS: NUT.TX.GLUC.INTOLER,LAC-FR,REG (BOOST GLUCOSE CONTROL) 237 ML PO SCH ×3 (08:00→17:56)
[2017-02-09] MEDS: labetalol 100mg tablet PO SCH ×3 (08:00→21:02)
[2017-02-09] MEDS: K and/or MAG REPLACEMENT MC SCH (08:00)
[2017-02-09] MEDS: Protein Smoothie (high protein) 240ml (8oz) cup PO SCH ×3 (08:00→17:56)
[2017-02-09] MEDS: levoFLOXACIN-Levaquin 750MG/D5 150 ML IV SCH (08:38)
[2017-02-09] MEDS: enoxaparin 60mg/0.6ml syringe SUBCUT SCH ×2 (08:39→21:11)
[2017-02-09] MEDS: enoxaparin 30mg/0.3ml syringe SUBCUT SCH ×2 (08:40→21:11)
[2017-02-09] MEDS: albumin (human) 25% 100 ML IV solution IV SCH ×2 (08:40→15:22)
[2017-02-09] MEDS: amiodarone 200mg tablet PO SCH ×3 (08:41→21:02)
[2017-02-09] MEDS: nystatin 500,000 unit/5ML UD oral suspension PO SCH ×3 (08:41→21:04)
[2017-02-09] MEDS: pantoprazole 40 MG vial IV SCH (08:41)
[2017-02-09] MEDS: aspirin 81mg tab.chew PO SCH (08:41)
[2017-02-09] MEDS: potassium Cl 20 mEq SR tablet PO SCH ×2 (08:41→16:46)
[2017-02-09] MEDS: nystatin 15 GM powder TP SCH ×3 (08:42→21:05)
[2017-02-09] MEDS: lactobacillus rhamnosus 10,000 MMU CELLS/CAPSULE PO SCH ×2 (08:45→16:46)
[2017-02-09] MEDS: vancomycin inj 1,250 MG in normal saline 250ml IV soln 250 ML IV SCH (13:56)
[2017-02-09] MEDS: midazolam 100mg in NS 100ml 100 ML IV PRN (15:21)
[2017-02-09] MEDS: polyethylene glycol 3350 17gm powd pack PO SCH (21:03)
[2017-02-09] MEDS: pravastatin 40mg tablet PO SCH (21:03)
[2017-02-09] MEDS: NORepinephrine 8mg/ 250ml NS 250 ML IV SCH (23:00)
[2017-02-10] VITALS (24 sets, daily range): BP systolic 127–149; BP diastolic 44–68
[2017-02-10] MEDS: albumin (human) 25% 100 ML IV solution IV SCH ×2 (00:38→08:09)
[2017-02-10] MEDS: FENTANYL-0.9 % NACL/PF 100 ML IV PRN ×2 (00:48→21:28)
[2017-02-10] MEDS: ipratropium/albuterol 3ml nebule NEB SCH ×6 (03:15→22:50)
[2017-02-10 03:31] LABS: ABG BASE EXCESS 4.5 mmol/L (-2.0-3.0); ABG HCO3 29.5 mmol/L (22.0-26.0); ABG OXYGEN SATURATION 95.2 % (95-98); ABG PH (T) 7.424 (7.350-7.450); ABG PO2 (T) 85.3 mmHg (83-108); FCOHb 0.3 % (0.5-1.5); FMetHb 0.3 % (0.3-1.12); FO2Hb 94.6 % (94-100); MINUTE VOLUME 8 L/min; PATIENT TEMPERATURE 36.8; PEEP 10 cm H2O; RESPIRATORY RATE 24 b/min; RESPIRATORY RATE (OBSERVED) 24 b/min; TIDAL VOLUME 325 mL
[2017-02-10] MEDS: hydrocortisone sod succ/PF 100mg/2ml inj. IV SCH ×4 (03:42→21:33)
[2017-02-10] MEDS: mineral oil/petrolatum ophthal oint EACHEYE SCH ×4 (03:43→21:26)
[2017-02-10 03:45] LABS: BASOPHILS % (AUTO) 0 % (0-1); EOSINOPHILS # (AUTO) 0.3 X10'3 (0-0.9); EOSINOPHILS % (AUTO) 2.1 % (0-6); HEMATOCRIT 26.1 % (35.0-45.0); HEMOGLOBIN 8.5 g/dl (12.0-16.0); LYMPHOCYTES # (AUTO) 0.6 X10'3 (1.1-4.8); LYMPHOCYTES % (AUTO) 3.5 % (21-51); MEAN CORPUSCULAR HGB CONC 32.5 % (33.0-36.5); MEAN CORPUSCULAR VOLUME 86.3 FL (78-98); MEAN PLATELET VOLUME 8.7 FL (7.4-10.4); MONOCYTES # (AUTO) 0.7 X10'3 (0-0.9); MONOCYTES % (AUTO) 4.1 % (2-12); NEUTROPHILS # (AUTO) 14.8 X10'3 (1.8-7.7); NEUTROPHILS % (AUTO) 90.3 % (42-75); PLATELET COUNT 192 X10'3 (140-440); RED BLOOD COUNT 3.02 X10'6 (4.20-5.60); RED CELL DISTRIBUTION WIDTH 16.4 % (11.5-14.5); WHITE BLOOD COUNT 16.4 X10'3 (4.5-11.0)
[2017-02-10 04:01] LABS: TOTAL CELLS COUNTED 100
[2017-02-10 04:02] LABS: ANISOCYTOSIS 1+; PLATELET ESTIMATE NORMAL; TOXIC GRANULATION 1+; TOXIC VACUOLATION 1+
[2017-02-10 04:06] LABS: ALANINE AMINOTRANSFERASE 14 U/L (12-78); ALBUMIN 3.2 G/DL (3.4-5.0); ALBUMIN/GLOBULIN RATIO 1.1 (1.1-1.5); ALKALINE PHOSPHATASE 27 IU/L (46-116); ANION GAP 9 (8-16); ASPARTATE AMINO TRANSFERASE 10 U/L (10-37); BILIRUBIN,TOTAL 0.6 MG/DL (0.1-1.0); BLOOD UREA NITROGEN 43 MG/DL (7-18); BUN/CREATININE RATIO 33.9 (6.6-38.0); CALCIUM 8.5 MG/DL (8.5-10.1); CHLORIDE 114 MMOL/L (99-107); CREATININE 1.27 MG/DL (0.40-0.90); GLUCOSE 145 MG/DL (70-104); POTASSIUM 3.8 MMOL/L (3.5-5.1); SODIUM 153 MMOL/L (135-145); TOTAL CARBON DIOXIDE 30.3 MMOL/L (24-32); eGFR 41 ML/MIN
[2017-02-10] MEDS: dextrose 5%-water 1,000 ML IV SCH ×3 (06:49→19:37)
[2017-02-10 07:36] LABS: MAGNESIUM 2.2 MG/DL (1.5-2.4); PHOSPHORUS 3.3 MG/DL (2.3-4.5)
[2017-02-10] MEDS: NUT.TX.GLUC.INTOLER,LAC-FR,REG (BOOST GLUCOSE CONTROL) 237 ML PO SCH ×3 (08:00→18:00)
[2017-02-10] MEDS: Protein Smoothie (high protein) 240ml (8oz) cup PO SCH ×3 (08:00→18:00)
[2017-02-10] MEDS: K and/or MAG REPLACEMENT MC SCH (08:00)
[2017-02-10] MEDS: levoFLOXACIN-Levaquin 750MG/D5 150 ML IV SCH (08:06)
[2017-02-10] MEDS: enoxaparin 30mg/0.3ml syringe SUBCUT SCH ×2 (08:07→21:28)
[2017-02-10] MEDS: enoxaparin 60mg/0.6ml syringe SUBCUT SCH ×2 (08:07→21:27)
[2017-02-10] MEDS: pantoprazole 40 MG vial IV SCH (08:07)
[2017-02-10] MEDS: aspirin 81mg tab.chew PO SCH (08:08)
[2017-02-10] MEDS: amiodarone 200mg tablet PO SCH ×3 (08:08→21:27)
[2017-02-10] MEDS: potassium Cl 20 mEq SR tablet PO SCH ×2 (08:08→17:47)
[2017-02-10] MEDS: nystatin 15 GM powder TP SCH ×3 (08:08→21:26)
[2017-02-10] MEDS: lactobacillus rhamnosus 10,000 MMU CELLS/CAPSULE PO SCH ×2 (08:08→17:47)
[2017-02-10] MEDS: labetalol 100mg tablet PO SCH ×3 (08:08→21:00)
[2017-02-10] MEDS: nystatin 500,000 unit/5ML UD oral suspension PO SCH ×3 (08:08→21:27)
[2017-02-10] MEDS: vancomycin inj 1,250 MG in normal saline 250ml IV soln 250 ML IV SCH (14:46)
[2017-02-10] MEDS: methylnaltrexone br 12mg/0.6ml inj***SubQ only SQ SCH (14:47)
[2017-02-10] MEDS: polyethylene glycol 3350 17gm powd pack PO SCH (21:27)
[2017-02-10] MEDS: pravastatin 40mg tablet PO SCH (21:33)
[2017-02-11] VITALS (24 sets, daily range): BP systolic 134–162; BP diastolic 46–77
[2017-02-11] MEDS: midazolam 100mg in NS 100ml 100 ML IV PRN (02:30)
[2017-02-11] MEDS: ipratropium/albuterol 3ml nebule NEB SCH ×6 (02:53→23:28)
[2017-02-11 03:06] LABS: ABG BASE EXCESS 1.8 mmol/L (-2.0-3.0); ABG HCO3 26.7 mmol/L (22.0-26.0); ABG OXYGEN SATURATION 94.4 % (95-98); ABG PCO2 (T) 41.8 mmHg (32.0-45.0); ABG PO2 (T) 74.5 mmHg (83-108); FCOHb 0.3 % (0.5-1.5); FMetHb 0.3 % (0.3-1.12); FO2Hb 93.8 % (94-100); MINUTE VOLUME 8 L/min; PATIENT TEMPERATURE 36.2; PEEP 10 cm H2O; RESPIRATORY RATE 24 b/min; RESPIRATORY RATE (OBSERVED) 24 b/min; TIDAL VOLUME 325 mL; TOTAL HEMOGLOBIN 9.5 G/dl (12.0-16.0)
[2017-02-11] MEDS: hydrocortisone sod succ/PF 100mg/2ml inj. IV SCH ×4 (03:56→20:27)
[2017-02-11] MEDS: mineral oil/petrolatum ophthal oint EACHEYE SCH ×4 (03:56→20:50)
[2017-02-11 04:21] LABS: BASOPHILS % (AUTO) 0 % (0-1); EOSINOPHILS # (AUTO) 0.3 X10'3 (0-0.9); EOSINOPHILS % (AUTO) 1.8 % (0-6); HEMATOCRIT 27.2 % (35.0-45.0); HEMOGLOBIN 8.9 g/dl (12.0-16.0); LYMPHOCYTES # (AUTO) 0.5 X10'3 (1.1-4.8); LYMPHOCYTES % (AUTO) 3.7 % (21-51); MEAN CORPUSCULAR HEMOGLOBIN 28.1 PG (27.0-31.0); MEAN CORPUSCULAR HGB CONC 32.6 % (33.0-36.5); MEAN CORPUSCULAR VOLUME 86.1 FL (78-98); MEAN PLATELET VOLUME 8.6 FL (7.4-10.4); MONOCYTES # (AUTO) 0.7 X10'3 (0-0.9); MONOCYTES % (AUTO) 4.8 % (2-12); NEUTROPHILS # (AUTO) 12.9 X10'3 (1.8-7.7); NEUTROPHILS % (AUTO) 89.7 % (42-75); PLATELET COUNT 202 X10'3 (140-440); RED BLOOD COUNT 3.15 X10'6 (4.20-5.60); RED CELL DISTRIBUTION WIDTH 15.8 % (11.5-14.5); WHITE BLOOD COUNT 14.4 X10'3 (4.5-11.0)
[2017-02-11 04:31] LABS: INR 1.3 INR; PARTIAL THROMBOPLASTIN TIME 44 SECONDS (22-32); PROTHROMBIN TIME 13.5 SECONDS (9.0-12.0)
[2017-02-11 04:51] LABS: ALANINE AMINOTRANSFERASE 16 U/L (12-78); ALBUMIN/GLOBULIN RATIO 1.1 (1.1-1.5); ALKALINE PHOSPHATASE 26 IU/L (46-116); ANION GAP 7 (8-16); ASPARTATE AMINO TRANSFERASE 7 U/L (10-37); BILIRUBIN,TOTAL 0.5 MG/DL (0.1-1.0); BLOOD UREA NITROGEN 51 MG/DL (7-18); BUN/CREATININE RATIO 42.5 (6.6-38.0); CALCIUM 8.3 MG/DL (8.5-10.1); CHLORIDE 110 MMOL/L (99-107); GLUCOSE 211 MG/DL (70-104); MAGNESIUM 2.3 MG/DL (1.5-2.4); POTASSIUM 3.8 MMOL/L (3.5-5.1); SODIUM 146 MMOL/L (135-145); TOTAL CARBON DIOXIDE 28.7 MMOL/L (24-32); TOTAL PROTEIN 5.8 G/DL (6.4-8.2); eGFR 43 ML/MIN
[2017-02-11] MEDS: dextrose 5%-water 1,000 ML IV SCH ×2 (05:58→18:38)
[2017-02-11] MEDS: magnesium hydroxide 30ml (MOM) UD suspension PO PRN (07:07)
[2017-02-11] MEDS: NUT.TX.GLUC.INTOLER,LAC-FR,REG (BOOST GLUCOSE CONTROL) 237 ML PO SCH (07:30)
[2017-02-11] MEDS: potassium Cl 20 mEq SR tablet PO SCH ×2 (07:31→07:32)
[2017-02-11] MEDS: Protein Smoothie (high protein) 240ml (8oz) cup PO SCH (07:31)
[2017-02-11] MEDS: K and/or MAG REPLACEMENT MC SCH (07:34)
[2017-02-11] MEDS: nystatin 15 GM powder TP SCH ×3 (08:00→20:52)
[2017-02-11] MEDS: labetalol 100mg tablet PO SCH ×3 (08:00→20:45)
[2017-02-11] MEDS: lactobacillus rhamnosus 10,000 MMU CELLS/CAPSULE PO SCH ×2 (08:31→17:20)
[2017-02-11] MEDS: pantoprazole 40 MG vial IV SCH (08:31)
[2017-02-11] MEDS: nystatin 500,000 unit/5ML UD oral suspension PO SCH ×3 (08:32→20:51)
[2017-02-11] MEDS: enoxaparin 30mg/0.3ml syringe SUBCUT SCH ×2 (08:32→20:28)
[2017-02-11] MEDS: aspirin 81mg tab.chew PO SCH (08:32)
[2017-02-11] MEDS: amiodarone 200mg tablet PO SCH ×3 (08:32→20:51)
[2017-02-11] MEDS: levoFLOXACIN-Levaquin 750MG/D5 150 ML IV SCH (08:32)
[2017-02-11] MEDS: enoxaparin 60mg/0.6ml syringe SUBCUT SCH ×2 (08:33→20:28)
[2017-02-11] MEDS ORDERED: magnesium citrate 296ml oral solution PO ONE (11:40)
[2017-02-11] MEDS: vancomycin inj 1,250 MG in normal saline 250ml IV soln 250 ML IV SCH (13:27)
[2017-02-11] MEDS: FENTANYL-0.9 % NACL/PF 100 ML IV PRN (18:38)
[2017-02-11] MEDS ORDERED: dextrose ORAL solution 15 GM/59 ML bottle PO PRN ×2 (20:15)
[2017-02-11] MEDS ORDERED: MESSAGE TO PHARMACY PO ONE (20:15)
[2017-02-11] MEDS ORDERED: glucagon, human recombinant 1mg kit SUBCUT PRN (20:15)
[2017-02-11] MEDS ORDERED: insulin Lispro (HumaLOG) vial - multi-dose SQ SCH (20:15)
[2017-02-11] MEDS ORDERED: dextrose 50%-water 50ml dispensing syringe IV PRN ×2 (20:15)
[2017-02-11] MEDS: polyethylene glycol 3350 17gm powd pack PO SCH (20:50)
[2017-02-11] MEDS: pravastatin 40mg tablet PO SCH (20:51)
[2017-02-11] MEDS: Insulin Detemir pen SQ SCH (21:00)
[2017-02-11] MEDS: NORepinephrine 8mg/ 250ml NS 250 ML IV SCH (23:00)
[2017-02-12] VITALS (24 sets, daily range): BP systolic 100–155; BP diastolic 38–55
[2017-02-12 02:46] LABS: BASOPHILS % (AUTO) 0.1 % (0-1); EOSINOPHILS # (AUTO) 0.1 X10'3 (0-0.9); EOSINOPHILS % (AUTO) 0.7 % (0-6); HEMATOCRIT 29.1 % (35.0-45.0); HEMOGLOBIN 9.4 g/dl (12.0-16.0); LYMPHOCYTES # (AUTO) 0.5 X10'3 (1.1-4.8); LYMPHOCYTES % (AUTO) 3.5 % (21-51); MEAN CORPUSCULAR HGB CONC 32.4 % (33.0-36.5); MEAN CORPUSCULAR VOLUME 86.3 FL (78-98); MEAN PLATELET VOLUME 8.9 FL (7.4-10.4); MONOCYTES # (AUTO) 0.8 X10'3 (0-0.9); MONOCYTES % (AUTO) 5.2 % (2-12); NEUTROPHILS # (AUTO) 13.3 X10'3 (1.8-7.7); NEUTROPHILS % (AUTO) 90.5 % (42-75); PLATELET COUNT 191 X10'3 (140-440); RED BLOOD COUNT 3.37 X10'6 (4.20-5.60); RED CELL DISTRIBUTION WIDTH 16.1 % (11.5-14.5); WHITE BLOOD COUNT 14.7 X10'3 (4.5-11.0)
[2017-02-12 02:56] LABS: INR 1.3 INR; PARTIAL THROMBOPLASTIN TIME 46 SECONDS (22-32); PROTHROMBIN TIME 13.5 SECONDS (9.0-12.0)
[2017-02-12] MEDS ORDERED: insulin Lispro (HumaLOG) vial - multi-dose SQ SCH (03:00)
[2017-02-12] MEDS ORDERED: insulin Lispro (HumaLOG) vial - multi-dose SQ ONE (03:01)
[2017-02-12] MEDS: mineral oil/petrolatum ophthal oint EACHEYE SCH ×4 (03:04→20:30)
[2017-02-12] MEDS: hydrocortisone sod succ/PF 100mg/2ml inj. IV SCH ×4 (03:04→20:21)
[2017-02-12 03:05] LABS: ALANINE AMINOTRANSFERASE 14 U/L (12-78); ALBUMIN 2.6 G/DL (3.4-5.0); ALBUMIN/GLOBULIN RATIO 0.9 (1.1-1.5); ALKALINE PHOSPHATASE 28 IU/L (46-116); ANION GAP 6 (8-16); ASPARTATE AMINO TRANSFERASE 9 U/L (10-37); BILIRUBIN,TOTAL 0.5 MG/DL (0.1-1.0); BLOOD UREA NITROGEN 49 MG/DL (7-18); BUN/CREATININE RATIO 46.2 (6.6-38.0); CALCIUM 8.3 MG/DL (8.5-10.1); CHLORIDE 108 MMOL/L (99-107); CREATININE 1.06 MG/DL (0.40-0.90); GLUCOSE 203 MG/DL (70-104); MAGNESIUM 2.3 MG/DL (1.5-2.4); POTASSIUM 3.9 MMOL/L (3.5-5.1); PREALBUMIN 17.8 MG/DL (19-36); SODIUM 142 MMOL/L (135-145); TOTAL CARBON DIOXIDE 28.2 MMOL/L (24-32); TOTAL PROTEIN 5.4 G/DL (6.4-8.2); eGFR 50 ML/MIN
[2017-02-12] MEDS: ipratropium/albuterol 3ml nebule NEB SCH ×6 (03:29→23:21)
[2017-02-12 03:41] LABS: ABG BASE EXCESS 2.9 mmol/L (-2.0-3.0); ABG HCO3 27.1 mmol/L (22.0-26.0); ABG OXYGEN SATURATION 92.4 % (95-98); ABG PCO2 (T) 38.6 mmHg (32.0-45.0); ABG PH (T) 7.462 (7.350-7.450); FCOHb 0.3 % (0.5-1.5); FMetHb 0.3 % (0.3-1.12); FO2Hb 91.8 % (94-100); MINUTE VOLUME 8 L/min; PATIENT TEMPERATURE 36.1; PEEP 8 cm H2O; RESPIRATORY RATE 24 b/min; RESPIRATORY RATE (OBSERVED) 24 b/min; TIDAL VOLUME 325 mL
[2017-02-12] MEDS: dextrose 5%-water 1,000 ML IV SCH (07:50)
[2017-02-12] MEDS: K and/or MAG REPLACEMENT MC SCH (08:00)
[2017-02-12] MEDS: labetalol 100mg tablet PO SCH ×3 (08:00→20:25)
[2017-02-12] MEDS: enoxaparin 60mg/0.6ml syringe SUBCUT SCH ×2 (08:28→19:32)
[2017-02-12] MEDS: enoxaparin 30mg/0.3ml syringe SUBCUT SCH ×2 (08:28→19:32)
[2017-02-12] MEDS: methylnaltrexone br 12mg/0.6ml inj***SubQ only SQ SCH (08:29)
[2017-02-12] MEDS: lactobacillus rhamnosus 10,000 MMU CELLS/CAPSULE PO SCH ×2 (08:29→17:30)
[2017-02-12] MEDS: aspirin 81mg tab.chew PO SCH (08:29)
[2017-02-12] MEDS: pantoprazole 40 MG vial IV SCH (08:29)
[2017-02-12] MEDS: amiodarone 200mg tablet PO SCH (08:29)
[2017-02-12] MEDS: potassium Cl 20 mEq SR tablet PO SCH ×2 (08:30→17:30)
[2017-02-12] MEDS: nystatin 15 GM powder TP SCH ×3 (08:30→20:31)
[2017-02-12] MEDS: levoFLOXACIN-Levaquin 750MG/D5 150 ML IV SCH (08:30)
[2017-02-12] MEDS: nystatin 500,000 unit/5ML UD oral suspension PO SCH ×3 (08:33→21:05)
[2017-02-12] MEDS: insulin regular, human vial - multi-dose SQ SCH ×3 (11:24→21:07)
[2017-02-12] MEDS: vancomycin inj 1,250 MG in normal saline 250ml IV soln 250 ML IV SCH (14:45)
[2017-02-12] MEDS: pravastatin 40mg tablet PO SCH (20:21)
[2017-02-12] MEDS: polyethylene glycol 3350 17gm powd pack PO SCH (20:22)
[2017-02-12] MEDS: Insulin Detemir pen SQ SCH (21:00)
[2017-02-13] VITALS (24 sets, daily range): BP systolic 103–162; BP diastolic 36–59
[2017-02-13] MEDS: mineral oil/petrolatum ophthal oint EACHEYE SCH ×2 (02:19→08:40)
[2017-02-13] MEDS: hydrocortisone sod succ/PF 100mg/2ml inj. IV SCH ×4 (02:23→20:16)
[2017-02-13] MEDS: insulin regular, human vial - multi-dose SQ SCH ×3 (02:29→14:31)
[2017-02-13] MEDS: ipratropium/albuterol 3ml nebule NEB SCH ×5 (02:53→21:36)
[2017-02-13 03:06] LABS: BASOPHILS % (AUTO) 0.1 % (0-1); EOSINOPHILS % (AUTO) 0 % (0-6); HEMATOCRIT 27.2 % (35.0-45.0); HEMOGLOBIN 8.8 g/dl (12.0-16.0); LYMPHOCYTES # (AUTO) 0.5 X10'3 (1.1-4.8); LYMPHOCYTES % (AUTO) 3.1 % (21-51); MEAN CORPUSCULAR HGB CONC 32.5 % (33.0-36.5); MEAN CORPUSCULAR VOLUME 86.1 FL (78-98); MEAN PLATELET VOLUME 9.4 FL (7.4-10.4); MONOCYTES # (AUTO) 0.7 X10'3 (0-0.9); MONOCYTES % (AUTO) 3.9 % (2-12); NEUTROPHILS # (AUTO) 16.2 X10'3 (1.8-7.7); NEUTROPHILS % (AUTO) 92.9 % (42-75); PLATELET COUNT 198 X10'3 (140-440); RED BLOOD COUNT 3.15 X10'6 (4.20-5.60); RED CELL DISTRIBUTION WIDTH 15.8 % (11.5-14.5); WHITE BLOOD COUNT 17.4 X10'3 (4.5-11.0)
[2017-02-13 03:35] LABS: ABG BASE EXCESS 0.3 mmol/L (-2.0-3.0); ABG HCO3 24.8 mmol/L (22.0-26.0); ABG OXYGEN SATURATION 95.2 % (95-98); ABG PCO2 (T) 39.3 mmHg (32.0-45.0); ABG PH (T) 7.416 (7.350-7.450); ABG PO2 (T) 83.4 mmHg (83-108); FCOHb 0.3 % (0.5-1.5); FMetHb 0.3 % (0.3-1.12); FO2Hb 94.6 % (94-100); MINUTE VOLUME 7 L/min; PATIENT TEMPERATURE 36.9; PEEP 8 cm H2O; RESPIRATORY RATE 22 b/min; RESPIRATORY RATE (OBSERVED) 22 b/min; TIDAL VOLUME 325 mL; TOTAL HEMOGLOBIN 10.6 G/dl (12.0-16.0)
[2017-02-13 04:18] LABS: ANISOCYTOSIS 1+; PLATELET ESTIMATE NORMAL; TOTAL CELLS COUNTED 100; TOXIC GRANULATION 1+
[2017-02-13 04:44] LABS: INR 1.3 INR; PARTIAL THROMBOPLASTIN TIME 36 SECONDS (22-32); PROTHROMBIN TIME 13.4 SECONDS (9.0-12.0)
[2017-02-13 04:47] LABS: ALANINE AMINOTRANSFERASE 15 U/L (12-78); ALBUMIN 2.3 G/DL (3.4-5.0); ALBUMIN/GLOBULIN RATIO 0.9 (1.1-1.5); ALKALINE PHOSPHATASE 28 IU/L (46-116); ANION GAP 3 (8-16); ASPARTATE AMINO TRANSFERASE 12 U/L (10-37); BILIRUBIN,TOTAL 0.5 MG/DL (0.1-1.0); BLOOD UREA NITROGEN 53 MG/DL (7-18); CALCIUM 8.1 MG/DL (8.5-10.1); CHLORIDE 110 MMOL/L (99-107); CREATININE 1.04 MG/DL (0.40-0.90); GLUCOSE 138 MG/DL (70-104); MAGNESIUM 2.5 MG/DL (1.5-2.4); PHOSPHORUS 3.5 MG/DL (2.3-4.5); SODIUM 144 MMOL/L (135-145); TOTAL CARBON DIOXIDE 31.2 MMOL/L (24-32); TOTAL PROTEIN 4.9 G/DL (6.4-8.2); eGFR 51 ML/MIN
[2017-02-13] MEDS: FENTANYL-0.9 % NACL/PF 100 ML IV PRN (07:37)
[2017-02-13] MEDS: enoxaparin 30mg/0.3ml syringe SUBCUT SCH ×2 (08:00→20:17)
[2017-02-13] MEDS: labetalol 100mg tablet PO SCH ×3 (08:00→20:18)
[2017-02-13] MEDS: K and/or MAG REPLACEMENT MC SCH (08:00)
[2017-02-13] MEDS: enoxaparin 60mg/0.6ml syringe SUBCUT SCH ×2 (08:00→20:20)
[2017-02-13] MEDS: potassium Cl 20 mEq SR tablet PO SCH ×2 (08:30→17:30)
[2017-02-13] MEDS: levoFLOXACIN-Levaquin 750MG/D5 150 ML IV SCH (08:40)
[2017-02-13] MEDS: pantoprazole 40 MG vial IV SCH (08:40)
[2017-02-13] MEDS: lactobacillus rhamnosus 10,000 MMU CELLS/CAPSULE PO SCH ×2 (08:40→18:12)
[2017-02-13] MEDS: amiodarone 200mg tablet PO SCH (08:41)
[2017-02-13] MEDS: aspirin 81mg tab.chew PO SCH (08:41)
[2017-02-13] MEDS: nystatin 500,000 unit/5ML UD oral suspension PO SCH ×3 (08:41→20:18)
[2017-02-13] MEDS: nystatin 15 GM powder TP SCH ×3 (08:42→20:19)
[2017-02-13] MEDS ORDERED: racepinephrine 11.25mg/0.5ml nebule NEB PRN (11:20)
[2017-02-13] MEDS ORDERED: ipratropium/albuterol 3ml nebule NEB PRN (11:20)
[2017-02-13] MEDS ORDERED: Dextrose 10%-water IV solution 1,000 ML IV PRN (11:50)
[2017-02-13] MEDS ORDERED: erythromycin lactobionate IV 250 MG in normal saline 100ml IV soln 100 ML IV SCH (14:00)
[2017-02-13] MEDS: vancomycin inj 1,250 MG in normal saline 250ml IV soln 250 ML IV SCH (14:07)
[2017-02-13] MEDS: pravastatin 40mg tablet PO SCH (20:18)
[2017-02-13] MEDS: polyethylene glycol 3350 17gm powd pack PO SCH (20:19)
[2017-02-13] MEDS: Insulin Detemir pen SQ SCH (21:00)
[2017-02-13] MEDS: ondansetron/PF 4mg/2ml inj IV PRN (21:00)
[2017-02-13] MEDS: NORepinephrine 8mg/ 250ml NS 250 ML IV SCH (22:20)
[2017-02-14] VITALS (24 sets, daily range): BP systolic 110–168; BP diastolic 36–67
[2017-02-14 02:22] LABS: BASOPHILS % (AUTO) 0 % (0-1); EOSINOPHILS # (AUTO) 0.3 X10'3 (0-0.9); EOSINOPHILS % (AUTO) 1.6 % (0-6); HEMATOCRIT 29.2 % (35.0-45.0); HEMOGLOBIN 9.5 g/dl (12.0-16.0); LYMPHOCYTES # (AUTO) 0.5 X10'3 (1.1-4.8); LYMPHOCYTES % (AUTO) 2.5 % (21-51); MEAN CORPUSCULAR HEMOGLOBIN 27.9 PG (27.0-31.0); MEAN CORPUSCULAR HGB CONC 32.5 % (33.0-36.5); MEAN CORPUSCULAR VOLUME 86.1 FL (78-98); MEAN PLATELET VOLUME 9.4 FL (7.4-10.4); MONOCYTES # (AUTO) 1.1 X10'3 (0-0.9); MONOCYTES % (AUTO) 5.8 % (2-12); NEUTROPHILS # (AUTO) 17.3 X10'3 (1.8-7.7); NEUTROPHILS % (AUTO) 90.1 % (42-75); PLATELET COUNT 184 X10'3 (140-440); RED CELL DISTRIBUTION WIDTH 15.7 % (11.5-14.5); WHITE BLOOD COUNT 19.2 X10'3 (4.5-11.0)
[2017-02-14 03:15] LABS: ALANINE AMINOTRANSFERASE 19 U/L (12-78); ALBUMIN 2.1 G/DL (3.4-5.0); ALBUMIN/GLOBULIN RATIO 0.8 (1.1-1.5); ALKALINE PHOSPHATASE 29 IU/L (46-116); ANION GAP 6 (8-16); ASPARTATE AMINO TRANSFERASE 19 U/L (10-37); BILIRUBIN,TOTAL 0.5 MG/DL (0.1-1.0); BLOOD UREA NITROGEN 53 MG/DL (7-18); BUN/CREATININE RATIO 54.6 (6.6-38.0); CALCIUM 7.9 MG/DL (8.5-10.1); CHLORIDE 111 MMOL/L (99-107); CREATININE 0.97 MG/DL (0.40-0.90); GLUCOSE 135 MG/DL (70-104); MAGNESIUM 2.4 MG/DL (1.5-2.4); PHOSPHORUS 3.6 MG/DL (2.3-4.5); POTASSIUM 4.2 MMOL/L (3.5-5.1); SODIUM 146 MMOL/L (135-145); TOTAL CARBON DIOXIDE 28.7 MMOL/L (24-32); TOTAL PROTEIN 4.8 G/DL (6.4-8.2); eGFR 56 ML/MIN
[2017-02-14] MEDS: hydrocortisone sod succ/PF 100mg/2ml inj. IV SCH ×4 (03:25→20:34)
[2017-02-14] MEDS: ipratropium/albuterol 3ml nebule NEB SCH ×4 (04:19→20:50)
[2017-02-14] MEDS: levoFLOXACIN-Levaquin 750MG/D5 150 ML IV SCH (07:37)
[2017-02-14] MEDS: enoxaparin 30mg/0.3ml syringe SUBCUT SCH ×2 (07:41→20:34)
[2017-02-14] MEDS: pantoprazole 40 MG vial IV SCH (07:41)
[2017-02-14] MEDS: enoxaparin 60mg/0.6ml syringe SUBCUT SCH ×2 (07:41→20:34)
[2017-02-14] MEDS: methylnaltrexone br 12mg/0.6ml inj***SubQ only SQ SCH (07:41)
[2017-02-14] MEDS: nystatin 500,000 unit/5ML UD oral suspension PO SCH ×3 (07:41→20:33)
[2017-02-14] MEDS: amiodarone 200mg tablet PO SCH (07:42)
[2017-02-14] MEDS: labetalol 100mg tablet PO SCH ×3 (07:42→20:35)
[2017-02-14] MEDS: nystatin 15 GM powder TP SCH ×3 (07:42→20:35)
[2017-02-14] MEDS: potassium Cl 20 mEq SR tablet PO SCH ×2 (07:42→17:15)
[2017-02-14] MEDS: lactobacillus rhamnosus 10,000 MMU CELLS/CAPSULE PO SCH ×2 (07:42→17:15)
[2017-02-14] MEDS: aspirin 81mg tab.chew PO SCH (07:42)
[2017-02-14] MEDS: K and/or MAG REPLACEMENT MC SCH (08:00)
[2017-02-14] MEDS: ondansetron/PF 4mg/2ml inj IV PRN (12:39)
[2017-02-14] MEDS: vancomycin inj 1,250 MG in normal saline 250ml IV soln 250 ML IV SCH (13:59)
[2017-02-14] MEDS: pravastatin 40mg tablet PO SCH (20:35)
[2017-02-14] MEDS: polyethylene glycol 3350 17gm powd pack PO SCH (20:35)
[2017-02-14] MEDS: Insulin Detemir pen SQ SCH (21:00)
[2017-02-15] VITALS (24 sets, daily range): BP systolic 111–160; BP diastolic 52–90
[2017-02-15] MEDS: hydrocortisone sod succ/PF 100mg/2ml inj. IV SCH ×4 (02:15→19:49)
[2017-02-15] MEDS: ipratropium/albuterol 3ml nebule NEB SCH ×4 (03:14→20:36)
[2017-02-15] MEDS: acetaminophen 325mg tablet PO PRN (03:18)
[2017-02-15 03:34] LABS: BASOPHILS % (AUTO) 0 % (0-1); EOSINOPHILS # (AUTO) 0.4 X10'3 (0-0.9); EOSINOPHILS % (AUTO) 2.4 % (0-6); HEMATOCRIT 29.9 % (35.0-45.0); HEMOGLOBIN 9.9 g/dl (12.0-16.0); LYMPHOCYTES # (AUTO) 0.4 X10'3 (1.1-4.8); LYMPHOCYTES % (AUTO) 2.9 % (21-51); MEAN CORPUSCULAR HEMOGLOBIN 28.2 PG (27.0-31.0); MEAN CORPUSCULAR HGB CONC 32.9 % (33.0-36.5); MEAN CORPUSCULAR VOLUME 85.7 FL (78-98); MEAN PLATELET VOLUME 8.7 FL (7.4-10.4); NEUTROPHILS % (AUTO) 87.7 % (42-75); PLATELET COUNT 171 X10'3 (140-440); RED BLOOD COUNT 3.49 X10'6 (4.20-5.60); RED CELL DISTRIBUTION WIDTH 16.4 % (11.5-14.5); WHITE BLOOD COUNT 14.9 X10'3 (4.5-11.0)
[2017-02-15 04:00] LABS: ALANINE AMINOTRANSFERASE 24 U/L (12-78); ALBUMIN 2.2 G/DL (3.4-5.0); ALBUMIN/GLOBULIN RATIO 0.8 (1.1-1.5); ALKALINE PHOSPHATASE 30 IU/L (46-116); ANION GAP 4 (8-16); ASPARTATE AMINO TRANSFERASE 20 U/L (10-37); BILIRUBIN,TOTAL 0.5 MG/DL (0.1-1.0); BLOOD UREA NITROGEN 48 MG/DL (7-18); BUN/CREATININE RATIO 50.5 (6.6-38.0); CALCIUM 8.1 MG/DL (8.5-10.1); CHLORIDE 113 MMOL/L (99-107); CREATININE 0.95 MG/DL (0.40-0.90); GLUCOSE 125 MG/DL (70-104); POTASSIUM 4.5 MMOL/L (3.5-5.1); SODIUM 146 MMOL/L (135-145); TOTAL CARBON DIOXIDE 29.5 MMOL/L (24-32); eGFR 57 ML/MIN
[2017-02-15] MEDS: K and/or MAG REPLACEMENT MC SCH (08:00)
[2017-02-15] MEDS: potassium Cl 20 mEq SR tablet PO SCH (08:30)
[2017-02-15] MEDS: labetalol 100mg tablet PO SCH ×3 (08:52→19:50)
[2017-02-15] MEDS: pantoprazole 40 MG vial IV SCH (08:52)
[2017-02-15] MEDS: aspirin 81mg tab.chew PO SCH (08:53)
[2017-02-15] MEDS: lactobacillus rhamnosus 10,000 MMU CELLS/CAPSULE PO SCH ×2 (08:53→18:01)
[2017-02-15] MEDS: levoFLOXACIN-Levaquin 750MG/D5 150 ML IV SCH (08:53)
[2017-02-15] MEDS: amiodarone 200mg tablet PO SCH (08:53)
[2017-02-15] MEDS: enoxaparin 60mg/0.6ml syringe SUBCUT SCH (08:54)
[2017-02-15] MEDS: enoxaparin 30mg/0.3ml syringe SUBCUT SCH ×2 (08:54→19:53)
[2017-02-15] MEDS: nystatin 15 GM powder TP SCH ×3 (08:55→19:52)
[2017-02-15] MEDS: magnesium hydroxide 30ml (MOM) UD suspension PO PRN (08:58)
[2017-02-15] MEDS: nystatin 500,000 unit/5ML UD oral suspension PO SCH ×3 (08:59→19:49)
[2017-02-15] MEDS: pantoprazole 40mg Tablet.DR PO SCH (10:20)
[2017-02-15] MEDS ORDERED: mineral oil 133ml enema RC ONE (11:40)
[2017-02-15] MEDS: vancomycin inj 1,250 MG in normal saline 250ml IV soln 250 ML IV SCH (14:48)
[2017-02-15] MEDS: polyethylene glycol 3350 17gm powd pack PO SCH (19:52)
[2017-02-15] MEDS: pravastatin 40mg tablet PO SCH (19:52)
[2017-02-15] MEDS: Insulin Detemir pen SQ SCH (21:00)
[2017-02-15 23:51] LABS: ABG BASE EXCESS 0.9 mmol/L (-2.0-3.0); ABG HCO3 25.3 mmol/L (22.0-26.0); ABG OXYGEN SATURATION 93.5 % (95-98); ABG PCO2 (T) 38.9 mmHg (32.0-45.0); ABG PO2 (T) 71.7 mmHg (83-108); ALLEN'S TEST Positive; FCOHb 0.3 % (0.5-1.5); FMetHb 0.3 % (0.3-1.12); FO2Hb 92.9 % (94-100); MINUTE VOLUME 14 L/min; PATIENT TEMPERATURE 36.6; RESPIRATORY RATE 16 b/min; RESPIRATORY RATE (OBSERVED) 18 b/min; TIDAL VOLUME 687 mL; TOTAL HEMOGLOBIN 9.9 G/dl (12.0-16.0)
[2017-02-16] VITALS (25 sets, daily range): BP systolic 102–179; BP diastolic 45–76
[2017-02-16] MEDS: hydrocortisone sod succ/PF 100mg/2ml inj. IV SCH ×2 (01:26→08:42)
[2017-02-16 02:47] LABS: BASOPHILS % (AUTO) 0 % (0-1); EOSINOPHILS % (AUTO) 0 % (0-6); HEMATOCRIT 27.2 % (35.0-45.0); HEMOGLOBIN 8.9 g/dl (12.0-16.0); LYMPHOCYTES # (AUTO) 0.5 X10'3 (1.1-4.8); LYMPHOCYTES % (AUTO) 3.8 % (21-51); MEAN CORPUSCULAR HGB CONC 32.7 % (33.0-36.5); MEAN CORPUSCULAR VOLUME 85.8 FL (78-98); MEAN PLATELET VOLUME 9.2 FL (7.4-10.4); MONOCYTES % (AUTO) 7.1 % (2-12); NEUTROPHILS # (AUTO) 12.7 X10'3 (1.8-7.7); NEUTROPHILS % (AUTO) 89.1 % (42-75); PLATELET COUNT 159 X10'3 (140-440); RED BLOOD COUNT 3.17 X10'6 (4.20-5.60); RED CELL DISTRIBUTION WIDTH 15.6 % (11.5-14.5); WHITE BLOOD COUNT 14.2 X10'3 (4.5-11.0)
[2017-02-16 03:09] LABS: ALANINE AMINOTRANSFERASE 20 U/L (12-78); ALBUMIN 2.1 G/DL (3.4-5.0); ALBUMIN/GLOBULIN RATIO 0.8 (1.1-1.5); ALKALINE PHOSPHATASE 31 IU/L (46-116); ANION GAP 4 (8-16); ASPARTATE AMINO TRANSFERASE 17 U/L (10-37); BILIRUBIN,TOTAL 0.5 MG/DL (0.1-1.0); BLOOD UREA NITROGEN 44 MG/DL (7-18); BUN/CREATININE RATIO 50.6 (6.6-38.0); CALCIUM 7.8 MG/DL (8.5-10.1); CHLORIDE 113 MMOL/L (99-107); CREATININE 0.87 MG/DL (0.40-0.90); GLUCOSE 136 MG/DL (70-104); MAGNESIUM 2.4 MG/DL (1.5-2.4); PHOSPHORUS 3.4 MG/DL (2.3-4.5); POTASSIUM 4.7 MMOL/L (3.5-5.1); PREALBUMIN 16.8 MG/DL (19-36); SODIUM 146 MMOL/L (135-145); TOTAL CARBON DIOXIDE 29.1 MMOL/L (24-32); TOTAL PROTEIN 4.7 G/DL (6.4-8.2); eGFR 63 ML/MIN
[2017-02-16] MEDS: ipratropium/albuterol 3ml nebule NEB SCH ×4 (03:44→21:08)
[2017-02-16] MEDS: K and/or MAG REPLACEMENT MC SCH (08:00)
[2017-02-16] MEDS: methylnaltrexone br 12mg/0.6ml inj***SubQ only SQ SCH (08:00)
[2017-02-16] MEDS: lactobacillus rhamnosus 10,000 MMU CELLS/CAPSULE PO SCH ×2 (08:42→17:42)
[2017-02-16] MEDS: nystatin 500,000 unit/5ML UD oral suspension PO SCH ×3 (08:42→22:18)
[2017-02-16] MEDS: amiodarone 200mg tablet PO SCH (08:42)
[2017-02-16] MEDS: aspirin 81mg tab.chew PO SCH (08:42)
[2017-02-16] MEDS: pantoprazole 40mg Tablet.DR PO SCH (08:42)
[2017-02-16] MEDS: labetalol 100mg tablet PO SCH ×3 (08:42→22:10)
[2017-02-16] MEDS: levoFLOXACIN-Levaquin 750MG/D5 150 ML IV SCH (08:43)
[2017-02-16] MEDS: enoxaparin 30mg/0.3ml syringe SUBCUT SCH ×2 (08:43→22:17)
[2017-02-16] MEDS: nystatin 15 GM powder TP SCH ×3 (08:43→22:18)
[2017-02-16] MEDS: furosemide 40mg/4ml inj IV SCH ×2 (12:46→22:18)
[2017-02-16] MEDS: vancomycin inj 1,250 MG in normal saline 250ml IV soln 250 ML IV SCH (12:46)
[2017-02-16] MEDS: Protein Shake (high protein) 240ml (8oz) cup PO SCH ×2 (13:00→19:00)
[2017-02-16] MEDS: Insulin Detemir pen SQ SCH (21:00)
[2017-02-16] MEDS: pravastatin 40mg tablet PO SCH (21:00)
[2017-02-16] MEDS: polyethylene glycol 3350 17gm powd pack PO SCH (22:18)
[2017-02-17] VITALS (10 sets, daily range): BP systolic 104–143; BP diastolic 46–68
[2017-02-17] MEDS: ipratropium/albuterol 3ml nebule NEB SCH ×4 (02:33→21:57)
[2017-02-17 04:51] LABS: BASOPHILS % (AUTO) 0.1 % (0-1); EOSINOPHILS # (AUTO) 0.2 X10'3 (0-0.9); EOSINOPHILS % (AUTO) 1.5 % (0-6); HEMATOCRIT 26.5 % (35.0-45.0); HEMOGLOBIN 8.7 g/dl (12.0-16.0); LYMPHOCYTES # (AUTO) 0.7 X10'3 (1.1-4.8); LYMPHOCYTES % (AUTO) 6.8 % (21-51); MEAN CORPUSCULAR HEMOGLOBIN 28.3 PG (27.0-31.0); MEAN CORPUSCULAR HGB CONC 32.9 % (33.0-36.5); MEAN PLATELET VOLUME 9.2 FL (7.4-10.4); MONOCYTES % (AUTO) 9.4 % (2-12); NEUTROPHILS # (AUTO) 8.9 X10'3 (1.8-7.7); NEUTROPHILS % (AUTO) 82.2 % (42-75); PLATELET COUNT 142 X10'3 (140-440); RED BLOOD COUNT 3.09 X10'6 (4.20-5.60); RED CELL DISTRIBUTION WIDTH 15.9 % (11.5-14.5); WHITE BLOOD COUNT 10.8 X10'3 (4.5-11.0)
[2017-02-17 05:06] LABS: ALANINE AMINOTRANSFERASE 21 U/L (12-78); ALBUMIN 2.2 G/DL (3.4-5.0); ALBUMIN/GLOBULIN RATIO 0.8 (1.1-1.5); ALKALINE PHOSPHATASE 33 IU/L (46-116); ANION GAP 4 (8-16); ASPARTATE AMINO TRANSFERASE 23 U/L (10-37); BILIRUBIN,TOTAL 0.8 MG/DL (0.1-1.0); BLOOD UREA NITROGEN 39 MG/DL (7-18); BUN/CREATININE RATIO 39.8 (6.6-38.0); CALCIUM 7.8 MG/DL (8.5-10.1); CHLORIDE 110 MMOL/L (99-107); CREATININE 0.98 MG/DL (0.40-0.90); GLUCOSE 107 MG/DL (70-104); POTASSIUM 3.2 MMOL/L (3.5-5.1); SODIUM 147 MMOL/L (135-145); TOTAL CARBON DIOXIDE 32.7 MMOL/L (24-32); TOTAL PROTEIN 4.9 G/DL (6.4-8.2); eGFR 55 ML/MIN
[2017-02-17] MEDS: K and/or MAG REPLACEMENT MC SCH (08:00)
[2017-02-17] MEDS: enoxaparin 30mg/0.3ml syringe SUBCUT SCH ×2 (08:02→19:13)
[2017-02-17] MEDS: aspirin 81mg tab.chew PO SCH (08:03)
[2017-02-17] MEDS: pantoprazole 40mg Tablet.DR PO SCH (08:03)
[2017-02-17] MEDS: labetalol 100mg tablet PO SCH ×3 (08:03→20:42)
[2017-02-17] MEDS: predniSONE 20 mg tablet PO SCH (08:03)
[2017-02-17] MEDS: amiodarone 200mg tablet PO SCH (08:03)
[2017-02-17] MEDS: furosemide 40mg/4ml inj IV SCH ×3 (08:03→19:12)
[2017-02-17] MEDS: lactobacillus rhamnosus 10,000 MMU CELLS/CAPSULE PO SCH ×2 (08:03→17:13)
[2017-02-17] MEDS: nystatin 500,000 unit/5ML UD oral suspension PO SCH ×3 (08:03→20:39)
[2017-02-17] MEDS: nystatin 15 GM powder TP SCH ×3 (08:04→20:42)
[2017-02-17] MEDS: levoFLOXACIN-Levaquin 750MG/D5 150 ML IV SCH (08:04)
[2017-02-17] MEDS ORDERED: magnesium Cl slow-release 64mg tablet PO PRN (09:50)
[2017-02-17] MEDS: potassium Cl 20 mEq SR tablet PO PRN ×2 (10:01→17:13)
[2017-02-17] MEDS: Protein Shake (high protein) 240ml (8oz) cup PO SCH ×2 (13:00→18:37)
[2017-02-17] MEDS: Protein Smoothie (high protein) 240ml (8oz) cup PO SCH ×2 (14:32→18:37)
[2017-02-17] MEDS: polyethylene glycol 3350 17gm powd pack PO SCH (19:13)
[2017-02-17] MEDS: pravastatin 40mg tablet PO SCH (20:40)
[2017-02-17] MEDS: Insulin Detemir pen SQ SCH (21:00)
[2017-02-18] VITALS (8 sets, daily range): BP systolic 80–129; BP diastolic 38–54
[2017-02-18] MEDS: ipratropium/albuterol 3ml nebule NEB SCH ×4 (02:56→20:35)
[2017-02-18 03:15] LABS: BASOPHILS % (AUTO) 0 % (0-1); EOSINOPHILS # (AUTO) 0.1 X10'3 (0-0.9); EOSINOPHILS % (AUTO) 1.4 % (0-6); HEMATOCRIT 25.8 % (35.0-45.0); HEMOGLOBIN 8.4 g/dl (12.0-16.0); LYMPHOCYTES # (AUTO) 0.8 X10'3 (1.1-4.8); LYMPHOCYTES % (AUTO) 8.5 % (21-51); MEAN CORPUSCULAR HGB CONC 32.5 % (33.0-36.5); MEAN CORPUSCULAR VOLUME 86.3 FL (78-98); MEAN PLATELET VOLUME 8.7 FL (7.4-10.4); MONOCYTES # (AUTO) 0.9 X10'3 (0-0.9); MONOCYTES % (AUTO) 9.5 % (2-12); NEUTROPHILS % (AUTO) 80.6 % (42-75); PLATELET COUNT 124 X10'3 (140-440); RED BLOOD COUNT 2.99 X10'6 (4.20-5.60); RED CELL DISTRIBUTION WIDTH 15.8 % (11.5-14.5); WHITE BLOOD COUNT 9.9 X10'3 (4.5-11.0)
[2017-02-18 03:37] LABS: ALANINE AMINOTRANSFERASE 25 U/L (12-78); ALBUMIN 2.2 G/DL (3.4-5.0); ALBUMIN/GLOBULIN RATIO 0.8 (1.1-1.5); ALKALINE PHOSPHATASE 32 IU/L (46-116); ANION GAP 3 (8-16); ASPARTATE AMINO TRANSFERASE 32 U/L (10-37); CALCIUM 7.9 MG/DL (8.5-10.1); CHLORIDE 107 MMOL/L (99-107); CREATININE 1.02 MG/DL (0.40-0.90); GLUCOSE 109 MG/DL (70-104); SODIUM 145 MMOL/L (135-145); TOTAL CARBON DIOXIDE 35.5 MMOL/L (24-32); eGFR 52 ML/MIN
[2017-02-18 03:56] LABS: BLOOD UREA NITROGEN 39 MG/DL (7-18); BUN/CREATININE RATIO 38.2 (6.6-38.0)
[2017-02-18] MEDS: methylnaltrexone br 12mg/0.6ml inj***SubQ only SQ SCH (08:00)
[2017-02-18] MEDS: Protein Shake (high protein) 240ml (8oz) cup PO SCH ×3 (08:00→17:40)
[2017-02-18] MEDS: K and/or MAG REPLACEMENT MC SCH (08:00)
[2017-02-18] MEDS: Protein Smoothie (high protein) 240ml (8oz) cup PO SCH ×3 (08:00→17:40)
[2017-02-18] MEDS: nystatin 15 GM powder TP SCH ×3 (08:48→22:17)
[2017-02-18] MEDS: enoxaparin 30mg/0.3ml syringe SUBCUT SCH ×2 (08:48→20:16)
[2017-02-18] MEDS: nystatin 500,000 unit/5ML UD oral suspension PO SCH ×3 (08:48→20:15)
[2017-02-18] MEDS: predniSONE 20 mg tablet PO SCH (08:49)
[2017-02-18] MEDS: potassium Cl 20 mEq SR tablet PO PRN ×3 (08:51→20:15)
[2017-02-18] MEDS: lactobacillus rhamnosus 10,000 MMU CELLS/CAPSULE PO SCH ×2 (08:52→17:39)
[2017-02-18] MEDS: furosemide 40mg/4ml inj IV SCH ×3 (08:52→20:26)
[2017-02-18] MEDS: labetalol 100mg tablet PO SCH ×3 (08:52→21:00)
[2017-02-18] MEDS: aspirin 81mg tab.chew PO SCH (08:52)
[2017-02-18] MEDS: amiodarone 200mg tablet PO SCH (08:52)
[2017-02-18] MEDS: pantoprazole 40mg Tablet.DR PO SCH (08:56)
[2017-02-18] MEDS ORDERED: pneumococcal 23-VAL P-sac vacc 25 mcg/0.5ml vial IMVAC ONE (10:00)
[2017-02-18 11:40] LABS: OCCULT BLOOD STOOL NEGATIVE (Neg)
[2017-02-18] MEDS: polyethylene glycol 3350 17gm powd pack PO SCH (20:14)
[2017-02-18] MEDS: pravastatin 40mg tablet PO SCH (20:15)
[2017-02-18] MEDS: Insulin Detemir pen SQ SCH (21:00)
[2017-02-19] VITALS (11 sets, daily range): BP systolic 93–140; BP diastolic 42–58
[2017-02-19] MEDS: ipratropium/albuterol 3ml nebule NEB SCH ×4 (02:33→20:59)
[2017-02-19 06:26] LABS: BASOPHILS % (AUTO) 0 % (0-1); EOSINOPHILS # (AUTO) 0.2 X10'3 (0-0.9); EOSINOPHILS % (AUTO) 1.6 % (0-6); HEMOGLOBIN 11.3 g/dl (12.0-16.0); LYMPHOCYTES % (AUTO) 9.2 % (21-51); MEAN CORPUSCULAR HEMOGLOBIN 28.9 PG (27.0-31.0); MEAN CORPUSCULAR HGB CONC 33.1 % (33.0-36.5); MEAN CORPUSCULAR VOLUME 87.1 FL (78-98); MEAN PLATELET VOLUME 9.2 FL (7.4-10.4); MONOCYTES # (AUTO) 0.9 X10'3 (0-0.9); MONOCYTES % (AUTO) 7.7 % (2-12); NEUTROPHILS # (AUTO) 9.2 X10'3 (1.8-7.7); NEUTROPHILS % (AUTO) 81.5 % (42-75); PLATELET COUNT 113 X10'3 (140-440); WHITE BLOOD COUNT 11.2 X10'3 (4.5-11.0)
[2017-02-19 07:05] LABS: ALANINE AMINOTRANSFERASE 29 U/L (12-78); ALBUMIN 2.4 G/DL (3.4-5.0); ALBUMIN/GLOBULIN RATIO 0.8 (1.1-1.5); ALKALINE PHOSPHATASE 42 IU/L (46-116); ANION GAP 2 (8-16); ASPARTATE AMINO TRANSFERASE 45 U/L (10-37); BILIRUBIN,TOTAL 1.4 MG/DL (0.1-1.0); BLOOD UREA NITROGEN 39 MG/DL (7-18); BUN/CREATININE RATIO 36.1 (6.6-38.0); CALCIUM 8.3 MG/DL (8.5-10.1); CHLORIDE 106 MMOL/L (99-107); CREATININE 1.08 MG/DL (0.40-0.90); GLUCOSE 91 MG/DL (70-104); POTASSIUM 4.8 MMOL/L (3.5-5.1); PREALBUMIN 19.7 MG/DL (19-36); SODIUM 143 MMOL/L (135-145); TOTAL CARBON DIOXIDE 35.2 MMOL/L (24-32); TOTAL PROTEIN 5.3 G/DL (6.4-8.2); eGFR 49 ML/MIN
[2017-02-19] MEDS: lactobacillus rhamnosus 10,000 MMU CELLS/CAPSULE PO SCH ×2 (07:30→17:30)
[2017-02-19] MEDS: Protein Smoothie (high protein) 240ml (8oz) cup PO SCH ×3 (08:00→18:00)
[2017-02-19] MEDS: Protein Shake (high protein) 240ml (8oz) cup PO SCH ×3 (08:00→18:00)
[2017-02-19] MEDS: K and/or MAG REPLACEMENT MC SCH (08:00)
[2017-02-19] MEDS: nystatin 500,000 unit/5ML UD oral suspension PO SCH ×3 (08:43→20:42)
[2017-02-19] MEDS: aspirin 81mg tab.chew PO SCH (08:44)
[2017-02-19] MEDS: pantoprazole 40mg Tablet.DR PO SCH (08:44)
[2017-02-19] MEDS: amiodarone 200mg tablet PO SCH (08:44)
[2017-02-19] MEDS: furosemide 40mg/4ml inj IV SCH ×2 (08:44→13:08)
[2017-02-19] MEDS: labetalol 100mg tablet PO SCH ×3 (08:44→20:43)
[2017-02-19] MEDS: enoxaparin 30mg/0.3ml syringe SUBCUT SCH ×2 (08:45→19:52)
[2017-02-19] MEDS: predniSONE 20 mg tablet PO SCH (08:45)
[2017-02-19] MEDS: nystatin 15 GM powder TP SCH ×3 (08:45→20:43)
[2017-02-19] MEDS: Insulin Detemir pen SQ SCH (19:55)
[2017-02-19] MEDS: polyethylene glycol 3350 17gm powd pack PO SCH (20:42)
[2017-02-19] MEDS: pravastatin 40mg tablet PO SCH (20:43)
[2017-02-20] MEDS: ipratropium/albuterol 3ml nebule NEB SCH ×4 (02:50→20:29)
[2017-02-20 03:00] VITALS: BP 125/54
[2017-02-20 06:00] VITALS: BP 125/48
[2017-02-20 06:37] LABS: BASOPHILS % (AUTO) 0 % (0-1); EOSINOPHILS # (AUTO) 0.3 X10'3 (0-0.9); EOSINOPHILS % (AUTO) 2.3 % (0-6); HEMATOCRIT 34.1 % (35.0-45.0); HEMOGLOBIN 11.2 g/dl (12.0-16.0); LYMPHOCYTES # (AUTO) 1.1 X10'3 (1.1-4.8); LYMPHOCYTES % (AUTO) 8.2 % (21-51); MEAN CORPUSCULAR HEMOGLOBIN 28.7 PG (27.0-31.0); MEAN CORPUSCULAR HGB CONC 32.9 % (33.0-36.5); MEAN CORPUSCULAR VOLUME 87.3 FL (78-98); MEAN PLATELET VOLUME 9.3 FL (7.4-10.4); MONOCYTES % (AUTO) 7.2 % (2-12); NEUTROPHILS # (AUTO) 10.9 X10'3 (1.8-7.7); NEUTROPHILS % (AUTO) 82.3 % (42-75); PLATELET COUNT 116 X10'3 (140-440); RED BLOOD COUNT 3.91 X10'6 (4.20-5.60); RED CELL DISTRIBUTION WIDTH 15.7 % (11.5-14.5); WHITE BLOOD COUNT 13.3 X10'3 (4.5-11.0)
[2017-02-20 07:50] LABS: ALANINE AMINOTRANSFERASE 38 U/L (12-78); ALBUMIN 2.4 G/DL (3.4-5.0); ALBUMIN/GLOBULIN RATIO 0.9 (1.1-1.5); ALKALINE PHOSPHATASE 35 IU/L (46-116); ANION GAP 8 (8-16); ASPARTATE AMINO TRANSFERASE 43 U/L (10-37); BILIRUBIN,TOTAL 1.1 MG/DL (0.1-1.0); BLOOD UREA NITROGEN 36 MG/DL (7-18); BUN/CREATININE RATIO 34.3 (6.6-38.0); CALCIUM 8.1 MG/DL (8.5-10.1); CHLORIDE 104 MMOL/L (99-107); CREATININE 1.05 MG/DL (0.40-0.90); GLUCOSE 88 MG/DL (70-104); POTASSIUM 3.6 MMOL/L (3.5-5.1); SODIUM 145 MMOL/L (135-145); TOTAL CARBON DIOXIDE 33.3 MMOL/L (24-32); TOTAL PROTEIN 5.2 G/DL (6.4-8.2); eGFR 51 ML/MIN
[2017-02-20] MEDS: methylnaltrexone br 12mg/0.6ml inj***SubQ only SQ SCH (08:00)
[2017-02-20] MEDS: Protein Smoothie (high protein) 240ml (8oz) cup PO SCH ×3 (08:00→18:00)
[2017-02-20] MEDS: Protein Shake (high protein) 240ml (8oz) cup PO SCH ×3 (08:00→18:00)
[2017-02-20] MEDS: K and/or MAG REPLACEMENT MC SCH (08:00)
[2017-02-20] MEDS: nystatin 500,000 unit/5ML UD oral suspension PO SCH ×3 (09:46→21:12)
[2017-02-20] MEDS: pantoprazole 40mg Tablet.DR PO SCH (09:47)
[2017-02-20] MEDS: labetalol 100mg tablet PO SCH ×3 (09:47→21:14)
[2017-02-20] MEDS: predniSONE 20 mg tablet PO SCH (09:47)
[2017-02-20] MEDS: amiodarone 200mg tablet PO SCH (09:47)
[2017-02-20] MEDS: aspirin 81mg tab.chew PO SCH (09:48)
[2017-02-20] MEDS: furosemide 40mg/4ml inj IV SCH ×2 (09:49→21:13)
[2017-02-20] MEDS: enoxaparin 30mg/0.3ml syringe SUBCUT SCH ×2 (09:50→21:14)
[2017-02-20] MEDS: nystatin 15 GM powder TP SCH ×3 (09:51→21:17)
[2017-02-20 11:00] VITALS: BP 105/45
[2017-02-20 15:00] VITALS: BP 114/46
[2017-02-20 19:00] VITALS: BP 135/77
[2017-02-20] MEDS: polyethylene glycol 3350 17gm powd pack PO SCH (21:00)
[2017-02-20] MEDS: Insulin Detemir pen SQ SCH (21:00)
[2017-02-20] MEDS: pravastatin 40mg tablet PO SCH (21:12)
[2017-02-20 23:00] VITALS: BP 115/52
[2017-02-21] VITALS (7 sets, daily range): BP systolic 94–126; BP diastolic 40–60
[2017-02-21] MEDS: ipratropium/albuterol 3ml nebule NEB SCH ×4 (03:07→21:50)
[2017-02-21 05:44] LABS: BASOPHILS % (AUTO) 0.1 % (0-1); EOSINOPHILS # (AUTO) 0.2 X10'3 (0-0.9); EOSINOPHILS % (AUTO) 2.2 % (0-6); HEMATOCRIT 32.4 % (35.0-45.0); HEMOGLOBIN 10.7 g/dl (12.0-16.0); LYMPHOCYTES # (AUTO) 0.9 X10'3 (1.1-4.8); LYMPHOCYTES % (AUTO) 8.3 % (21-51); MEAN CORPUSCULAR HEMOGLOBIN 28.8 PG (27.0-31.0); MEAN CORPUSCULAR VOLUME 87.2 FL (78-98); MEAN PLATELET VOLUME 8.9 FL (7.4-10.4); MONOCYTES # (AUTO) 0.8 X10'3 (0-0.9); MONOCYTES % (AUTO) 6.9 % (2-12); NEUTROPHILS % (AUTO) 82.5 % (42-75); PLATELET COUNT 112 X10'3 (140-440); RED BLOOD COUNT 3.71 X10'6 (4.20-5.60); WHITE BLOOD COUNT 10.9 X10'3 (4.5-11.0)
[2017-02-21 06:14] LABS: ALANINE AMINOTRANSFERASE 43 U/L (12-78); ALBUMIN 2.3 G/DL (3.4-5.0); ALBUMIN/GLOBULIN RATIO 0.9 (1.1-1.5); ALKALINE PHOSPHATASE 38 IU/L (46-116); ANION GAP 4 (8-16); ASPARTATE AMINO TRANSFERASE 37 U/L (10-37); BILIRUBIN,TOTAL 0.9 MG/DL (0.1-1.0); BLOOD UREA NITROGEN 38 MG/DL (7-18); BUN/CREATININE RATIO 34.9 (6.6-38.0); CALCIUM 7.7 MG/DL (8.5-10.1); CHLORIDE 105 MMOL/L (99-107); CREATININE 1.09 MG/DL (0.40-0.90); GLUCOSE 86 MG/DL (70-104); MAGNESIUM 2.1 MG/DL (1.5-2.4); POTASSIUM 3.2 MMOL/L (3.5-5.1); SODIUM 145 MMOL/L (135-145); TOTAL CARBON DIOXIDE 35.7 MMOL/L (24-32); eGFR 49 ML/MIN
[2017-02-21] MEDS ORDERED: potassium Cl 20 mEq SR tablet PO PRN (06:25)
[2017-02-21] MEDS: Protein Smoothie (high protein) 240ml (8oz) cup PO SCH ×3 (08:00→18:00)
[2017-02-21] MEDS: Protein Shake (high protein) 240ml (8oz) cup PO SCH ×3 (08:00→18:00)
[2017-02-21] MEDS: K and/or MAG REPLACEMENT MC SCH (08:00)
[2017-02-21] MEDS: pantoprazole 40mg Tablet.DR PO SCH (08:31)
[2017-02-21] MEDS: LACTOBACILLUS RHAMNOSUS GG 15 billion unit sprinkle caps PO SCH (08:31)
[2017-02-21] MEDS: aspirin 81mg tab.chew PO SCH (08:31)
[2017-02-21] MEDS: nystatin 500,000 unit/5ML UD oral suspension PO SCH ×3 (08:31→21:43)
[2017-02-21] MEDS: predniSONE 20 mg tablet PO SCH (08:31)
[2017-02-21] MEDS: amiodarone 200mg tablet PO SCH (08:32)
[2017-02-21] MEDS: furosemide 40mg/4ml inj IV SCH (08:32)
[2017-02-21] MEDS: labetalol 100mg tablet PO SCH ×3 (08:32→21:42)
[2017-02-21] MEDS: potassium Cl 20 mEq SR tablet PO PRN ×3 (08:32→17:20)
[2017-02-21] MEDS: enoxaparin 30mg/0.3ml syringe SUBCUT SCH ×2 (08:33→21:43)
[2017-02-21] MEDS: nystatin 15 GM powder TP SCH ×3 (08:33→21:46)
[2017-02-21] MEDS: Insulin Detemir pen SQ SCH (21:00)
[2017-02-21] MEDS: polyethylene glycol 3350 17gm powd pack PO SCH (21:00)
[2017-02-21] MEDS: pravastatin 40mg tablet PO SCH (21:42)
[2017-02-21] MEDS: furosemide 40mg tablet PO SCH (21:42)
[2017-02-22] VITALS (8 sets, daily range): BP systolic 93–113; BP diastolic 40–49
[2017-02-22] MEDS: ipratropium/albuterol 3ml nebule NEB SCH ×4 (02:49→20:02)
[2017-02-22] MEDS: Protein Shake (high protein) 240ml (8oz) cup PO SCH ×3 (08:00→18:00)
[2017-02-22] MEDS: Protein Smoothie (high protein) 240ml (8oz) cup PO SCH ×3 (08:00→18:00)
[2017-02-22] MEDS: K and/or MAG REPLACEMENT MC SCH (09:08)
[2017-02-22] MEDS: methylnaltrexone br 12mg/0.6ml inj***SubQ only SQ SCH (09:20)
[2017-02-22] MEDS: furosemide 40mg tablet PO SCH ×2 (09:22→20:32)
[2017-02-22] MEDS: LACTOBACILLUS RHAMNOSUS GG 15 billion unit sprinkle caps PO SCH (09:22)
[2017-02-22] MEDS: aspirin 81mg tab.chew PO SCH (09:23)
[2017-02-22] MEDS: predniSONE 20 mg tablet PO SCH (09:23)
[2017-02-22] MEDS: amiodarone 200mg tablet PO SCH (09:23)
[2017-02-22] MEDS: pantoprazole 40mg Tablet.DR PO SCH (09:24)
[2017-02-22] MEDS: nystatin 500,000 unit/5ML UD oral suspension PO SCH ×3 (09:27→20:33)
[2017-02-22] MEDS: nystatin 15 GM powder TP SCH ×3 (09:28→20:48)
[2017-02-22] MEDS: apixaban 5mg tablet PO SCH ×2 (09:33→20:32)
[2017-02-22] MEDS: labetalol 100mg tablet PO SCH ×3 (09:34→20:45)
[2017-02-22] MEDS ORDERED: apixaban 5mg tablet PO SCH (20:00)
[2017-02-22] MEDS: polyethylene glycol 3350 17gm powd pack PO SCH (20:32)
[2017-02-22] MEDS: pravastatin 40mg tablet PO SCH (20:45)
[2017-02-22] MEDS: Insulin Detemir pen SQ SCH (21:00)
[2017-02-23 02:00] VITALS: BP 111/45
[2017-02-23] MEDS: ipratropium/albuterol 3ml nebule NEB SCH ×4 (02:39→20:30)
[2017-02-23 06:00] VITALS: BP 116/59
[2017-02-23 06:11] LABS: PREALBUMIN 21.8 MG/DL (19-36)
[2017-02-23] MEDS: pantoprazole 40mg Tablet.DR PO SCH (08:16)
[2017-02-23] MEDS: predniSONE 20 mg tablet PO SCH (08:16)
[2017-02-23] MEDS: labetalol 100mg tablet PO SCH ×3 (08:16→21:30)
[2017-02-23] MEDS: nystatin 500,000 unit/5ML UD oral suspension PO SCH ×3 (08:16→21:31)
[2017-02-23] MEDS: LACTOBACILLUS RHAMNOSUS GG 15 billion unit sprinkle caps PO SCH (08:17)
[2017-02-23] MEDS: furosemide 40mg tablet PO SCH ×2 (08:17→21:30)
[2017-02-23] MEDS: amiodarone 200mg tablet PO SCH (08:17)
[2017-02-23] MEDS: nystatin 15 GM powder TP SCH ×3 (08:17→21:31)
[2017-02-23] MEDS: Protein Shake (high protein) 240ml (8oz) cup PO SCH ×3 (08:17→15:29)
[2017-02-23] MEDS: aspirin 81mg tab.chew PO SCH (08:17)
[2017-02-23] MEDS: Protein Smoothie (high protein) 240ml (8oz) cup PO SCH ×3 (08:18→15:29)
[2017-02-23] MEDS: apixaban 5mg tablet PO SCH (08:19)
[2017-02-23 09:05] LABS: ALANINE AMINOTRANSFERASE 54 U/L (12-78); ALBUMIN 2.4 G/DL (3.4-5.0); ALBUMIN/GLOBULIN RATIO 0.9 (1.1-1.5); ALKALINE PHOSPHATASE 47 IU/L (46-116); ANION GAP 5 (8-16); ASPARTATE AMINO TRANSFERASE 35 U/L (10-37); BILIRUBIN,TOTAL 0.8 MG/DL (0.1-1.0); BLOOD UREA NITROGEN 36 MG/DL (7-18); CALCIUM 8.1 MG/DL (8.5-10.1); CHLORIDE 104 MMOL/L (99-107); CREATININE 1.03 MG/DL (0.40-0.90); GLUCOSE 80 MG/DL (70-104); POTASSIUM 4.2 MMOL/L (3.5-5.1); SODIUM 143 MMOL/L (135-145); TOTAL CARBON DIOXIDE 34.1 MMOL/L (24-32); TOTAL PROTEIN 5.2 G/DL (6.4-8.2); eGFR 52 ML/MIN
[2017-02-23] MEDS: K and/or MAG REPLACEMENT MC SCH (09:05)
[2017-02-23 09:58] LABS: BASOPHILS % (AUTO) 0.1 % (0-1); EOSINOPHILS # (AUTO) 0.3 X10'3 (0-0.9); EOSINOPHILS % (AUTO) 3.1 % (0-6); HEMATOCRIT 35.3 % (35.0-45.0); HEMOGLOBIN 11.6 g/dl (12.0-16.0); LYMPHOCYTES # (AUTO) 0.7 X10'3 (1.1-4.8); LYMPHOCYTES % (AUTO) 6.8 % (21-51); MEAN CORPUSCULAR HEMOGLOBIN 28.9 PG (27.0-31.0); MEAN CORPUSCULAR HGB CONC 32.7 % (33.0-36.5); MEAN CORPUSCULAR VOLUME 88.3 FL (78-98); MEAN PLATELET VOLUME 9.6 FL (7.4-10.4); MONOCYTES # (AUTO) 0.7 X10'3 (0-0.9); MONOCYTES % (AUTO) 6.3 % (2-12); NEUTROPHILS % (AUTO) 83.7 % (42-75); PLATELET COUNT 114 X10'3 (140-440); RED BLOOD COUNT 3.99 X10'6 (4.20-5.60); RED CELL DISTRIBUTION WIDTH 16.6 % (11.5-14.5); WHITE BLOOD COUNT 10.8 X10'3 (4.5-11.0)
[2017-02-23 11:00] VITALS: BP 115/42
[2017-02-23 15:00] VITALS: BP 125/51
[2017-02-23 18:00] VITALS: BP 109/45
[2017-02-23] MEDS: polyethylene glycol 3350 17gm powd pack PO SCH (21:00)
[2017-02-23] MEDS: Insulin Detemir pen SQ SCH (21:00)
[2017-02-23] MEDS: pravastatin 40mg tablet PO SCH (21:35)
[2017-02-23 22:00] VITALS: BP 138/52
[2017-02-24] MEDS: ipratropium/albuterol 3ml nebule NEB SCH ×4 (02:51→20:22)
[2017-02-24 03:00] VITALS: BP 137/57
[2017-02-24 06:00] VITALS: BP 118/53
[2017-02-24 06:39] LABS: BASOPHILS % (AUTO) 0.1 % (0-1); EOSINOPHILS # (AUTO) 0.3 X10'3 (0-0.9); EOSINOPHILS % (AUTO) 3.5 % (0-6); HEMOGLOBIN 11.4 g/dl (12.0-16.0); LYMPHOCYTES # (AUTO) 0.8 X10'3 (1.1-4.8); MEAN CORPUSCULAR HEMOGLOBIN 29.1 PG (27.0-31.0); MEAN CORPUSCULAR HGB CONC 33.4 % (33.0-36.5); MEAN CORPUSCULAR VOLUME 87.1 FL (78-98); MONOCYTES # (AUTO) 0.7 X10'3 (0-0.9); MONOCYTES % (AUTO) 7.2 % (2-12); NEUTROPHILS # (AUTO) 7.8 X10'3 (1.8-7.7); NEUTROPHILS % (AUTO) 81.2 % (42-75); PLATELET COUNT 119 X10'3 (140-440); RED CELL DISTRIBUTION WIDTH 16.4 % (11.5-14.5); WHITE BLOOD COUNT 9.7 X10'3 (4.5-11.0)
[2017-02-24 07:17] LABS: ALANINE AMINOTRANSFERASE 52 U/L (12-78); ALBUMIN 2.3 G/DL (3.4-5.0); ALBUMIN/GLOBULIN RATIO 0.9 (1.1-1.5); ALKALINE PHOSPHATASE 47 IU/L (46-116); ANION GAP 5 (8-16); ASPARTATE AMINO TRANSFERASE 30 U/L (10-37); BILIRUBIN,TOTAL 0.8 MG/DL (0.1-1.0); BLOOD UREA NITROGEN 29 MG/DL (7-18); BUN/CREATININE RATIO 29.3 (6.6-38.0); CALCIUM 7.9 MG/DL (8.5-10.1); CHLORIDE 103 MMOL/L (99-107); CREATININE 0.99 MG/DL (0.40-0.90); GLUCOSE 88 MG/DL (70-104); POTASSIUM 3.3 MMOL/L (3.5-5.1); SODIUM 143 MMOL/L (135-145); TOTAL CARBON DIOXIDE 34.7 MMOL/L (24-32); eGFR 54 ML/MIN
[2017-02-24] MEDS: methylnaltrexone br 12mg/0.6ml inj***SubQ only SQ SCH (08:00)
[2017-02-24] MEDS: K and/or MAG REPLACEMENT MC SCH (08:00)
[2017-02-24] MEDS: furosemide 40mg tablet PO SCH ×2 (08:51→21:55)
[2017-02-24] MEDS: pantoprazole 40mg Tablet.DR PO SCH (08:52)
[2017-02-24] MEDS: aspirin 81mg tab.chew PO SCH (08:52)
[2017-02-24] MEDS: nystatin 500,000 unit/5ML UD oral suspension PO SCH ×3 (08:52→21:56)
[2017-02-24] MEDS: LACTOBACILLUS RHAMNOSUS GG 15 billion unit sprinkle caps PO SCH (08:52)
[2017-02-24] MEDS: amiodarone 200mg tablet PO SCH (08:52)
[2017-02-24] MEDS: predniSONE 20 mg tablet PO SCH (08:52)
[2017-02-24] MEDS: labetalol 100mg tablet PO SCH ×3 (08:52→21:55)
[2017-02-24] MEDS: nystatin 15 GM powder TP SCH ×3 (08:53→21:56)
[2017-02-24] MEDS: Protein Shake (high protein) 240ml (8oz) cup PO SCH ×3 (08:53→18:00)
[2017-02-24] MEDS: Protein Smoothie (high protein) 240ml (8oz) cup PO SCH ×3 (08:53→18:00)
[2017-02-24] MEDS: potassium Cl 20 mEq SR tablet PO PRN ×3 (10:00→18:13)
[2017-02-24 11:00] VITALS: BP 106/44
[2017-02-24 15:00] VITALS: BP 112/49
[2017-02-24] MEDS ORDERED: apixaban 2.5mg tablet PO SCH (20:00)
[2017-02-24] MEDS: polyethylene glycol 3350 17gm powd pack PO SCH ×2 (21:00→21:56)
[2017-02-24] MEDS: Insulin Detemir pen SQ SCH (21:00)
[2017-02-24] MEDS: pravastatin 40mg tablet PO SCH (21:55)
[2017-02-24 22:00] VITALS: BP 117/47
[2017-02-25 02:00] VITALS: BP 116/40
[2017-02-25] MEDS: ipratropium/albuterol 3ml nebule NEB SCH ×4 (03:00→21:01)
[2017-02-25 06:00] VITALS: BP 113/46
[2017-02-25] MEDS: Protein Smoothie (high protein) 240ml (8oz) cup PO SCH ×3 (08:00→18:00)
[2017-02-25] MEDS: Protein Shake (high protein) 240ml (8oz) cup PO SCH ×3 (08:00→18:00)
[2017-02-25] MEDS: K and/or MAG REPLACEMENT MC SCH (08:00)
[2017-02-25] MEDS: nystatin 15 GM powder TP SCH ×3 (08:01→22:38)
[2017-02-25] MEDS: furosemide 40mg tablet PO SCH ×2 (08:01→20:24)
[2017-02-25] MEDS: nystatin 500,000 unit/5ML UD oral suspension PO SCH ×3 (08:01→22:42)
[2017-02-25] MEDS: LACTOBACILLUS RHAMNOSUS GG 15 billion unit sprinkle caps PO SCH (08:01)
[2017-02-25] MEDS: labetalol 100mg tablet PO SCH ×3 (08:02→21:00)
[2017-02-25] MEDS: aspirin 81mg tab.chew PO SCH (08:02)
[2017-02-25] MEDS: pantoprazole 40mg Tablet.DR PO SCH (08:02)
[2017-02-25] MEDS: predniSONE 20 mg tablet PO SCH (08:02)
[2017-02-25] MEDS: amiodarone 200mg tablet PO SCH (08:02)
[2017-02-25] MEDS: apixaban 5mg tablet PO SCH (08:07)
[2017-02-25 08:41] LABS: ALBUMIN 2.5 G/DL (3.4-5.0); ANION GAP 5 (8-16); BLOOD UREA NITROGEN 31 MG/DL (7-18); CALCIUM 8.2 MG/DL (8.5-10.1); CHLORIDE 102 MMOL/L (99-107); CREATININE 1.07 MG/DL (0.40-0.90); GLUCOSE 86 MG/DL (70-104); MAGNESIUM 2.2 MG/DL (1.5-2.4); POTASSIUM 3.7 MMOL/L (3.5-5.1); SODIUM 141 MMOL/L (135-145); TOTAL CARBON DIOXIDE 34.3 MMOL/L (24-32); eGFR 50 ML/MIN
[2017-02-25 11:00] VITALS: BP 107/54
[2017-02-25 15:00] VITALS: BP 101/49
[2017-02-25 18:00] VITALS: BP 104/56
[2017-02-25] MEDS: polyethylene glycol 3350 17gm powd pack PO SCH (21:00)
[2017-02-25] MEDS: Insulin Detemir pen SQ SCH (21:00)
[2017-02-25 22:00] VITALS: BP 115/58
[2017-02-25] MEDS: pravastatin 40mg tablet PO SCH (22:37)
[2017-02-26 02:00] VITALS: BP 117/59
[2017-02-26] MEDS: ipratropium/albuterol 3ml nebule NEB SCH ×2 (05:23→08:35)
[2017-02-26 06:00] VITALS: BP 107/57
[2017-02-26] MEDS: nystatin 500,000 unit/5ML UD oral suspension PO SCH ×2 (07:31→13:42)
[2017-02-26] MEDS: predniSONE 20 mg tablet PO SCH (07:31)
[2017-02-26] MEDS: LACTOBACILLUS RHAMNOSUS GG 15 billion unit sprinkle caps PO SCH (07:31)
[2017-02-26] MEDS: pantoprazole 40mg Tablet.DR PO SCH (07:31)
[2017-02-26] MEDS: apixaban 5mg tablet PO SCH (07:32)
[2017-02-26] MEDS: labetalol 100mg tablet PO SCH ×2 (07:32→13:42)
[2017-02-26] MEDS: amiodarone 200mg tablet PO SCH (07:32)
[2017-02-26] MEDS: furosemide 40mg tablet PO SCH (07:32)
[2017-02-26] MEDS: aspirin 81mg tab.chew PO SCH (07:32)
[2017-02-26] MEDS: methylnaltrexone br 12mg/0.6ml inj***SubQ only SQ SCH (08:00)
[2017-02-26] MEDS: Protein Smoothie (high protein) 240ml (8oz) cup PO SCH ×2 (08:00→13:24)
[2017-02-26] MEDS: Protein Shake (high protein) 240ml (8oz) cup PO SCH ×2 (08:00→13:24)
[2017-02-26 08:29] LABS: ALBUMIN 2.5 G/DL (3.4-5.0); ANION GAP 5 (8-16); BLOOD UREA NITROGEN 30 MG/DL (7-18); BUN/CREATININE RATIO 27.5 (6.6-38.0); CALCIUM 8.2 MG/DL (8.5-10.1); CHLORIDE 103 MMOL/L (99-107); CREATININE 1.09 MG/DL (0.40-0.90); GLUCOSE 113 MG/DL (70-104); MAGNESIUM 2.1 MG/DL (1.5-2.4); SODIUM 142 MMOL/L (135-145); TOTAL CARBON DIOXIDE 33.8 MMOL/L (24-32); eGFR 49 ML/MIN
[2017-02-26 08:36] LABS: POTASSIUM 2.7 MMOL/L (3.5-5.1)
[2017-02-26] MEDS: potassium Cl 20 mEq SR tablet PO PRN ×2 (08:41→13:00)
[2017-02-26] MEDS: K and/or MAG REPLACEMENT MC SCH (08:50)
[2017-02-26] MEDS: nystatin 15 GM powder TP SCH ×2 (08:51→13:24)
[2017-02-26 11:00] VITALS: BP 116/51
[2017-02-26] MEDS ORDERED: Protein Shake (high protein) 240ml (8oz) cup PO SCH (13:00)
== END 2017-02-26 16:10 | DRG 870 ==
LOC: ER 14:20 → ED HOLD 16:42 → PCU 3S 19:40 → CICU 2S 02-04 01:57 → PCU 3S 02-17 05:40 → UNDODISIN 02-24 11:00
PROVIDERS: ADMIT Internal Medicine; ATTEND Family Medicine
PROC: 5A09457 Assistance with Respiratory Ventilation, 24-96 Consecutive Hours, Continuous Positive Airway Pressure (ICD-10-PCS; 2017-02-03)
PROC: 02HV33Z Insertion of Infusion Device into Superior Vena Cava, Percutaneous Approach (ICD-10-PCS; 2017-02-04)
PROC: B548ZZA Ultrasonography of Superior Vena Cava, Guidance (ICD-10-PCS; 2017-02-04)
PROC: 03HY32Z Insertion of Monitoring Device into Upper Artery, Percutaneous Approach (ICD-10-PCS; 2017-02-04)
PROC: 5A1955Z Respiratory Ventilation, Greater than 96 Consecutive Hours (ICD-10-PCS; principal; 2017-02-07)
PROC: 0BH17EZ Insertion of Endotracheal Airway into Trachea, Via Natural or Artificial Opening (ICD-10-PCS; 2017-02-07)
PROC: 0BH17EZ Insertion of Endotracheal Airway into Trachea, Via Natural or Artificial Opening (ICD-10-PCS; 2017-02-07)
PROC: 30233N1 Transfusion of Nonautologous Red Blood Cells into Peripheral Vein, Percutaneous Approach (ICD-10-PCS; 2017-02-18)
DX: A41.9 Sepsis, unspecified organism (principal); J96.01 Acute respiratory failure with hypoxia; N17.9 Acute kidney failure, unspecified; L89.152 Pressure ulcer of sacral region, stage 2; Z99.11 Dependence on respirator [ventilator] status; J18.1 Lobar pneumonia, unspecified organism; I50.33 Acute on chronic diastolic (congestive) heart failure; E46 Unspecified protein-calorie malnutrition; J44.0 Chronic obstructive pulmonary disease with (acute) lower respiratory infection; R04.2 Hemoptysis; N39.0 Urinary tract infection, site not specified; J44.1 Chronic obstructive pulmonary disease with (acute) exacerbation; E11.51 Type 2 diabetes mellitus with diabetic peripheral angiopathy without gangrene; I48.0 Paroxysmal atrial fibrillation; I11.0 Hypertensive heart disease with heart failure; I34.2 Nonrheumatic mitral (valve) stenosis; E87.6 Hypokalemia; R91.1 Solitary pulmonary nodule; D18.09 Hemangioma of other sites; Z96.653 Presence of artificial knee joint, bilateral; T38.0X5A Adverse effect of glucocorticoids and synthetic analogues, initial encounter; E05.90 Thyrotoxicosis, unspecified without thyrotoxic crisis or storm; D64.9 Anemia, unspecified; E66.9 Obesity, unspecified; E78.5 Hyperlipidemia, unspecified; E86.0 Dehydration; G47.33 Obstructive sleep apnea (adult) (pediatric); M19.90 Unspecified osteoarthritis, unspecified site; B96.20 Unspecified Escherichia coli [E. coli] as the cause of diseases classified elsewhere; Q89.1 Congenital malformations of adrenal gland; Z95.820 Peripheral vascular angioplasty status with implants and grafts; Z88.5 Allergy status to narcotic agent; Z88.8 Allergy status to other drugs, medicaments and biological substances; Z68.34 Body mass index [BMI] 34.0-34.9, adult; Z79.899 Other long term (current) drug therapy; Z79.82 Long term (current) use of aspirin; Z87.891 Personal history of nicotine dependence; Z23 Encounter for immunization; Z78.1 Physical restraint status
CPT/HCPCS: 36415; 36600; 70551; 71010; 71045; 71250; 74000; 76604; 80048; 80053; 80061; 80202; 81001; 82272; 82570; 82803; 82810; 82948; 83605; 83735; 83880; 84100; 84132; 84134; 84145; 84156; 84439; 84443; 84480; 84484; 85018; 85025; 85610; 85730; 86713; 86885; 86900; 86901; 86920; 87040; 87070; 87077; 87088; 87186; 87502; 87503; 90732; 92616; 93005; 93306; 93975; 94002; 94003; 94640; 94660; 94667; 94668; 94760; 96361; 96374; 96375; 97110; 97162; 97530; 99285; A4649; A6209; A6212; A6213; A6251; A6257; A6258; A6449; A7015; C1751; C1758; C9113; G9035; J0282; J0696; J1364; J1644; J1650; J1720; J1815; J1940; J1956; J2212; J2250; J2405; J2543; J3010; J3370; J3475; J3480; J3490; J7030; J7060; J7070; J7512; P9016; P9045; P9047